=== PATIENT | male | born 1985 | race Caucasian/White ===

== ENCOUNTER 2021-06-19 12:26 | Outpatient (REF) | payer BC, SELFPAY ==
--- NOTE | ~2021-06-19 | XR_ITS ---
EXAMINATION: XR SHOULDER, RIGHT CLINICAL INFORMATION: Right shoulder pain. COMPARISON: None TECHNIQUE: AP external rotation, Grashey, scapular Y, and axillary views of the right shoulder. FINDINGS: The bones and soft tissues are normal. No fracture. Glenohumeral and acromioclavicular alignment is anatomic with normal joint space. No abnormal soft tissue calcifications. XR/XR shoulder RT min 2V IMPRESSION: Unremarkable right shoulder.
--- NOTE | ~2021-06-19 | XR_ITS ---
EXAMINATION: XR FOOT, LEFT CLINICAL INFORMATION: Left foot pain. COMPARISON: None TECHNIQUE: AP, lateral, and oblique views of the left foot. FINDINGS: The bones and soft tissues are normal. No fracture. Alignment is anatomic. Joint spaces are maintained. XR/XR foot LT min 3V IMPRESSION: Unremarkable left foot.
[2021-06-19 13:53] LABS: MANUAL DIFF FLAG NO
[2021-06-19 13:59] LABS: Basophils Absolute Auto 0.1 X10*3/uL (0.0-0.2); Basophils Percent Auto 0.9 % (0-2); Eosinophils Absolute Auto 0.1 X10*3/uL (0.0-0.4); Eosinophils Percent Auto 1.3 % (0-4); Hemoglobin 15.6 g/dl (14.0-18.0); Imm Gran Abs Auto 0.09 X10*3/uL (0.00-0.03); Imm Gran Pct Auto 0.9 % (0.0-0.4); Lymphocytes Absolute Auto 1.9 X10*3/uL (1.2-4.9); Lymphocytes Percent Auto 19.6 % (20-40); Mean Corpuscular HGB Conc 34.7 g/dl (31.0-36.0); Mean Corpuscular Hemoglobin 29.7 pg (27.0-33.0); Mean Corpuscular Volume 85.7 fL (80-98); Mean Platelet Volume 10.3 fL (9.4-12.4); Monocytes Absolute Auto 0.8 X10*3/uL (0.1-1.2); Monocytes Percent Auto 8.3 % (2-11); Neutrophils Absolute Auto 6.6 X10*3/uL (2.0-8.3); Platelet Count 356 X10*3/uL (160-400); Red Blood Count 5.25 X10*6/uL (4.60-5.80); Red Cell Distribution Width 12.6 % (11.0-16.0); White Blood Count 9.5 X10*3/uL (4.8-10.8)
[2021-06-19 14:00] LABS: Appearance Urine CLEAR; Color Urine YELLOW; Glucose Urine UA NEG (NEG); Leukocyte Esterase Urine NEG (NEG); Nitrite Urine NEG (NEG); Urine Blood NEG (NEG); Urine Ketones NEG (NEG); Urine Protein NEG (NEG-TRACE)
[2021-06-19 14:11] LABS: Alanine Aminotransferase 48 U/L (0-40); Albumin Level 5.1 g/dL (3.5-5.0); Alkaline Phosphatase 72 U/L (39-117); Anion Gap 17 (12-20); Aspartate Amino Transferase 35 U/L (5-37); Bilirubin Total 0.5 mg/dL (0.0-1.0); Blood Urea Nitrogen 8 mg/dL (9-16); Carbon Dioxide 23 mmol/L (22-29); Chloride 102 mmol/L (96-108); Estimated Glomerular Filt Rate > 60; Glucose Fasting 105 mg/dL (60-99); Iron 100 mcg/dL (45-160); Percent Iron Saturation 24 % (15-50); Potassium 4.3 mmol/L (3.3-5.1); Sodium 138 mmol/L (135-145); Total Iron Binding Capacity 411 mcg/dL (228-428); Total Protein 8.2 g/dL (6.5-8.0); Unsaturated Iron Binding 311 ug/dL
[2021-06-19 14:41] LABS: Ferritin 284 ng/mL (20-250); TSH reflex Free T4 1.23 uIU/mL (0.32-4.0)
[2021-06-19 14:42] LABS: Vitamin B12 608 pg/mL (200-900)
[2021-06-20 08:37] LABS: Lyme Abs Screen <0.90 index
[2021-06-20 11:56] LABS: Anti Nuclear Antibody Screen NEGATIVE (NEGATIVE)
== END 2021-06-19 12:27 | disposition home or self-care (01) ==
LOC: HO.HMGCX 12:26
PROVIDERS: PCP Nurse Practitioner Family; Visit Provider Nurse Practitioner Family
DX: R53.83 Other fatigue (principal); M25.511 Pain in right shoulder; M79.672 Pain in left foot
CPT/HCPCS: 36415; 73030; 73630; 80053; 81003; 82607; 82728; 83540; 84443; 85025; 86038; 86039; 86617; 86618

== ENCOUNTER → 2021-07-25 08:36 | Outpatient (BNVA) | payer BC, SELFPAY | PROVIDERS: PCP Nurse Practitioner Family; Referring Provider Nurse Practitioner Family; Visit Provider Psychiatry & Neurology Neurology ==

== ENCOUNTER 2021-07-26 08:52 | Outpatient (REF) | payer BC, SELFPAY ==
--- NOTE | ~2021-07-26 | US_ITS ---
EXAMINATION: US ABDOMEN COMPLETE CLINICAL INFORMATION: Abnormal levels of serum enzymes. COMPARISON: None TECHNIQUE: Real-time imaging of the abdominal viscera. FINDINGS: PANCREAS: Normal. ABDOMINAL AORTA: The proximal, mid, and distal segments are normal in caliber. INFERIOR VENA CAVA: Visualized portions are normal. LIVER: The liver is normal in size. The liver contour is normal. There is increased liver echogenicity. No focal hepatic lesion. There is no intrahepatic biliary duct dilatation seen. GALLBLADDER: Gallbladder wall thickness measures 0.19 cm. The gallbladder is physiologically distended without evidence of stones, sludge, polyps, wall thickening or pericholecystic fluid. COMMON BILE DUCT: Normal in caliber measuring 0.4 cm in diameter. RIGHT KIDNEY: There are multiple echogenic foci non-parenchymal and non-shadowing. Question vascular calcification. No hydronephrosis. No renal calculi or focal parenchymal lesions. The kidney measures 11.3 cm in maximum dimension. LEFT KIDNEY: There are multiple echogenic foci, non-parenchymal and non-shadowing. Likely vascular calcification. No hydronephrosis. No renal calculi or focal parenchymal lesions. The kidney measures 13.4 cm in maximum dimension. SPLEEN: Normal. The spleen measures 9.3 cm in maximum dimension. FREE FLUID: None. US/US abdomen complete IMPRESSION: 1. Mild hepatic steatosis without focal lesion. 2. Scattered small multiple echogenic foci in both kidneys likely small vascular calcifications. No caliectasis or hydronephrosis seen. 3. The rest of the abdomen ultrasound is unremarkable.
[2021-07-27 10:08] LABS: HBS Num1 60.64 mIU/mL (0-7.99); HBc Num1 0.06 S/CO (0.00-0.79); Hepatitis B Core Antibody Nonreactive (Nonreactive); ~HepC Num1 0.09 S/CO (0.00-0.79); ~Hepatitis B Surface Antibody REACTIVE (Nonreactive); ~Hepatitis C Antibody Nonreactive (Nonreactive)
[2021-07-27 10:31] LABS: HBsAGNum1 0.21 S/CO (0.00-0.99); Hepatitis B Surface Antigen Negative (Negative)
[2021-07-27 12:27] LABS: Hepatitis A Antibody IgM 0.15 Index (0-0.79); ~Hepatitis A Antibody IgM Nonreactive (Nonreactive)
== END 2021-07-26 08:53 | disposition home or self-care (01) ==
LOC: HO.HMGCX 08:52
PROVIDERS: PCP Nurse Practitioner Family; Visit Provider Nurse Practitioner Family
DX: R74.8 Abnormal levels of other serum enzymes (principal)
CPT/HCPCS: 36415; 76700; 86704; 86706; 86709; 86803; 87340

== ENCOUNTER 2022-03-26 10:31 | Day surgery (SDC) | payer BC, SELFPAY ==
[2022-03-20 10:08] VITALS: BMI 27.6
--- NOTE | 2022-03-23 10:48 | P.CONAN_ITS ---
Documented by User: Flores Segura NP 03/23/22 10:48 HPI - Anesthesia Eval Consult details Narrative: 36yo M for Upper Endoscopy PMFSH Active Problems Active Problems: All Active Problems (Updated 03/20/22 @ 10:04 by Jacqueline Gasca RN) Right shoulder pain (Acute) Anxiety (Acute) Fatigue (Acute) Left foot pain (Acute) Elevated liver enzymes (Acute) Snoring (Acute) Excessive daytime sleepiness (Acute) Sebaceous cyst of right axilla (Acute) Skin lesion (Acute) Past Medical History Medical History GERD (gastroesophageal reflux disease) Family History Family History Father Hepatitis C Mother No problems noted. Sister No problems noted. Surgical History Surgical History H/O colonoscopy History of esophagogastroduodenoscopy Hx of wisdom tooth extraction Social History Social History Alcohol intake: current Alcohol intake frequency: 3 or more drinks per day Alcohol type: beer Patient Tobacco Use Status: Former Tobacco user Quit Date: 2016 Years Smoked: 10 +/- Use of substances other than those prescribed or required for medical reasons: Yes Substance Use Frequency: Daily Are you DNR?: No Advance Directives: No Advance Directives Information Provided: Yes Meds Allergies Allergy/AdvReac Type Severity Reaction Status Date / Time No Known Allergies Allergy Verified 09/26/21 10:00 [No Known Allergies*] Home Medications Medication Instructions Recorded Confirmed Last Taken Type flu vac qv 2019(18yr up)rc(PF) 180 ml IM 08/04/20 09/26/21 Unknown History mcg(45 mcgx4)/0.5 mL IM syringe omeprazole 40 mg capsule,delayed 40 mg PO BID 07/25/21 03/20/22 Unknown History release esomeprazole magnesium 40 mg 40 mg PO DAILY 03/20/22 03/20/22 Unknown History capsule,delayed release (Nexium) meclizine 25 mg tablet 25 mg PO DAILY PRN Vertigo 03/20/22 03/20/22 Unknown History ondansetron HCl 4 mg tablet 4 mg PO Q6H PRN Nausea And Vomiting 03/20/22 03/20/22 Unknown History Exam Exam Date and Time: March 23, 2022 1048 Height,Weight and Vital Signs: Height 6 ft Weight 92.533 kg Assessment and Plan Assessment Anesthesia Assessment: Chart Reviewed Documented by User: Svitlana Roth MD 03/26/22 11:36 [facility] Past Medical History Medical History GERD (gastroesophageal reflux disease) Family History Family History Father Hepatitis C Mother No problems noted. Sister No problems noted. Surgical History Surgical History H/O colonoscopy History of esophagogastroduodenoscopy Hx of wisdom tooth extraction History of Problems with Anesthesia: No Social History Social History Alcohol intake: current Alcohol intake frequency: 3 or more drinks per day Alcohol type: beer Patient Tobacco Use Status: Former Tobacco user Quit Date: 2016 Years Smoked: 10 +/- Use of substances other than those prescribed or required for medical reasons: Yes Substance Use Frequency: Daily Are you DNR?: No Advance Directives: No Advance Directives Information Provided: Yes Meds Allergies Allergy/AdvReac Type Severity Reaction Status Date / Time No Known Allergies Allergy Verified 09/26/21 10:00 [No Known Allergies*] Home Medications Medication Instructions Recorded Confirmed Last Taken Type flu vac qv 2019(18yr up)rc(PF) 180 ml IM 08/04/20 09/26/21 Unknown History mcg(45 mcgx4)/0.5 mL IM syringe omeprazole 40 mg capsule,delayed 40 mg PO BID 07/25/21 03/20/22 Unknown History release esomeprazole magnesium 40 mg 40 mg PO DAILY 03/20/22 03/20/22 Unknown History capsule,delayed release (Nexium) meclizine 25 mg tablet 25 mg PO DAILY PRN Vertigo 03/20/22 03/20/22 Unknown History ondansetron HCl 4 mg tablet 4 mg PO Q6H PRN Nausea And Vomiting 03/20/22 03/20/22 Unknown History Exam Airway Mallampati Class: III TM Dist: >3cm Neck ROM: Full Loose/Missing/Broken Teeth: No Heart: RRR Lungs: CTA Assessment and Plan Assessment Anesthesia Assessment: Anesthesia Plan Discussed Final Anesthetic Review History of Problems with Anesthesia: No NPO: Yes ASA Class: II Final Preanesthetic Review: Meds/Allgs Chart Reviewed, Consent Obtained/Reviewed and Anes Risks/Benef Reviewed Patient Risk: Low Procedure Risk: Intermediate Anesthetic Plan Anesthetic Plan: MAC: Disposition: Standard PACU
[2022-03-26 10:48] VITALS: BP 145/97; PULSE 85; RESP 16; TEMP 36.3; O2SAT 96
[2022-03-26] MEDS: Lactated Ringers 1,000 ML 100 ML IVCONT (11:10)
[2022-03-26 12:12] VITALS: BP 122/69; PULSE 88; RESP 20; TEMP 36.7; O2SAT 99
--- NOTE | 2022-03-26 12:20 | PM.OP ---
Brief Operative Note Date of Service: 03/26/22 Pre-op diagnosis: GERD, Hx of duodenal adenoma Post-op diagnosis: other (Hiatal hernia, Gastric polyps, R/O Celiac disease) Procedure: EGD with biopsies Surgeon: Jugn Duncan Anesthesia: MAC Was an Administrative Intern used for this Procedure?: No Estimated blood loss (mL): 2.0 Pathology: other (A. Descending duodenum B. EG Junction at 39cm C. Gastric polyps) Condition: stable Disposition: PACU
[2022-03-26 12:27] VITALS: BP 123/75; PULSE 76; RESP 18; O2SAT 95
[2022-03-26 12:42] VITALS: BP 141/91; PULSE 79; RESP 18; O2SAT 97
[2022-03-26 12:57] VITALS: BP 146/97; PULSE 72; RESP 19; TEMP 36.8; O2SAT 97
[2022-03-26 13:13] VITALS: BP 131/89; PULSE 74; RESP 20; TEMP 36.8; O2SAT 98
--- NOTE | 2022-03-27 11:42 | OP_ITS ---
SURGEON: Jung Duncan MD INDICATIONS: The patient presents for followup of personal history of a duodenal adenoma, intermittent diarrhea, and gastroesophageal reflux. Full consent has been obtained from him for this, including risks of bleeding and perforation. PREOPERATIVE DIAGNOSIS: POSTOPERATIVE DIAGNOSIS: Gastroesophageal reflux, history of duodenal adenoma, and intermittent diarrhea, rule out celiac disease, gastric polyps, hiatal hernia, rule out Law's esophagus. PROCEDURE PERFORMED: Esophagogastroduodenoscopy with biopsies. ESTIMATED BLOOD LOSS: COMPLICATIONS: ANESTHESIA: Monitored anesthesia care. ASSISTANTS: SPECIMENS: PREOPERATIVE DIAGNOSES: Gastroesophageal reflux, history of duodenal adenoma, and intermittent diarrhea. DESCRIPTION OF PROCEDURE: The patient was placed in the left lateral decubitus position. The Olympus video gastroscope was passed into the posterior oropharynx and upper esophagus under direct vision. The scope was passed slowly to the distal esophagus. The gastroesophageal junction appeared at 39 cm. This area appeared slightly irregular consistent with reflux but no evidence of esophagitis nor any definitive evidence of Law's esophagus. The scope was advanced to the pylorus and the duodenum was cannulated to the descending portion. The duodenum including the bulb was carefully inspected and appeared normal without any sign of polyps nor ulceration. The duodenal bulb did not show any sign of residual polyp tissue. I did obtain biopsies in the 2nd and 3rd portions of duodenum. The scope was withdrawn back to the stomach. The gastric antrum and body appeared normal with good peristalsis. The scope was retroflexed visualizing the proximal stomach carefully, which appeared normal, without any sign of mass or ulceration. There were multiple hyperplastic gastric polyps noted. Several of these were biopsied. The scope was straightened and withdrawn back to the esophagus. Biopsies were obtained at the EG junction at 39 cm. Proximal to that, the esophageal mucosa appeared normal. The scope was withdrawn from the patient. He tolerated the procedure well and was returned to the recovery area in stable condition. IMPRESSION: 1. Rule out celiac disease. 2. Gastric polyps. 3. Hiatal hernia, rule out Law esophagus. PLAN: The results of the biopsies will be checked. If there is evidence of Law's esophagus, I would recommend a repeat upper endoscopy in 3 years. If there is no Law's esophagus, I would still recommend another upper endoscopy in 2 or 3 years given the previous history of the duodenal adenoma. He was advised not to use any aspirin or NSAIDs for at least 1 week. He was advised to continue his omeprazole, which he is currently using at 20 mg b.i.d. 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 He was advised to continue to use Tums and to not eat for several hours before bedtime. If things are stable I will plan to see him in 2023 for another colonoscopy as well. This has been discussed with his . MD DI Cuenca/PRESLEY / [id number] MTDD
== END 2022-03-26 13:42 | disposition home or self-care (01) ==
PROVIDERS: PCP Nurse Practitioner Family; Visit Provider Internal Medicine
PROC: 0DJ08ZZ Inspection of Upper Intestinal Tract, Via Natural or Artificial Opening Endoscopic (ICD-10-PCS; CPT 43235; principal; 2022-03-26 11:30)
DX: K21.9 Gastro-esophageal reflux disease without esophagitis (principal); Z86.018 Personal history of other benign neoplasm; K31.7 Polyp of stomach and duodenum; K44.9 Diaphragmatic hernia without obstruction or gangrene; K58.0 Irritable bowel syndrome with diarrhea; Z79.899 Other long term (current) drug therapy; Z87.891 Personal history of nicotine dependence
CPT/HCPCS: 43239; 88305; 88342; J2250

== ENCOUNTER 2023-07-28 09:52 | Emergency (ER) | payer BC, SELFPAY ==
--- NOTE | ~2023-07-28 | CT_ITS ---
EXAMINATION: CT ABDOMEN AND PELVIS WITH CONTRAST CLINICAL INFORMATION: Epigastric pain. History of pancreatitis. COMPARISON: Ultrasound abdomen 07/28/2021 TECHNIQUE: Multidetector volumetric images were obtained from the superior aspect of the liver through the pubic symphysis following administration 85 mL of Omnipaque 350 intravenous contrast. Sagittal and coronal reformatted images were obtained on the technologist's workstation. Oral contrast: No This CT examination was performed using dose optimization techniques as appropriate, variously including the following: *Automated exposure control *Adjustment of mA and/or kV according to patient size (this includes techniques or standardized protocols for targeted exams where dose is matched to indication/reason for exam; i.e. extremities or head) *Use of iterative reconstruction technique DLP: 558 mGy-cm FINDINGS: LUNG BASES: The visualized lung bases are unremarkable. LIVER, GALLBLADDER, AND BILIARY TREE: The liver is normal in size, shape, and attenuation. No focal hepatic lesion or biliary ductal dilatation is present. The gallbladder is unremarkable with no evidence of radiopaque gallstones, gallbladder wall thickening, or obvious pericholecystic inflammatory changes. PANCREAS: Unremarkable. SPLEEN: Unremarkable.. Small accessory splenule. ADRENAL GLANDS: Unremarkable. KIDNEYS AND URETERS: The kidneys are normal in size, shape, and attenuation. No hydronephrosis, hydroureter, or calculi seen. No perinephric stranding. BLADDER: Unremarkable. GASTROINTESTINAL TRACT: The small and large bowel are unremarkable. The appendix is unremarkable. ABDOMINAL WALL: Small umbilical hernia containing fat is noted. LYMPH NODES: Normal. VASCULAR: Unremarkable. PELVIC VISCERA: Unremarkable. OSSEOUS STRUCTURES: Unremarkable. CT/CT abdomen pelvis w IV con IMPRESSION: No acute intra-abdominal process seen. Fleischner guidelines were followed.
[2023-07-28 09:54] VITALS: BP 167/115; PULSE 126; RESP 20; TEMP 37; O2SAT 96; BMI 26.9
--- NOTE | 2023-07-28 10:17 | ED_ITS ---
HPI - Abdominal Pain General Chief Complaint: Abdominal Pain Stated Complaint: Pancreatitis (?) symptoms Time Seen by Provider: 07/28/23 10:05 Source: patient and old records reviewed Mode of arrival: ambulatory Limitations: no limitations History of Present Illness HPI narrative: 37 yo male with PMH of anxiety, 3-10 beers a day, GERD taking his PPI here with c/o one week of n/v and upper abdominal pain. He is drinking heavily every day and not feeling well. He denies hx of seizures. He is shaky right now. MD elicited complaint: abdominal pain Pertinent past history: gastritis Onset (ago): week(s) (1) Pain Consistency: constant Location: epigastric Severity: moderate Quality: aching Radiation: back Migration to: no migration Exacerbating factors: eating and movement Relieving factors: nothing Context: history of similar episodes Associated symptoms: nausea and vomiting Related Data Home Medications Medication Instructions Recorded Confirmed flu vac qv 2019(18yr up)rc(PF) 180 ml IM 08/04/20 09/26/22 mcg(45 mcgx4)/0.5 mL IM syringe omeprazole 40 mg capsule,delayed 40 mg PO BID 07/25/21 09/26/22 release meclizine 25 mg tablet 25 mg PO DAILY PRN Vertigo 03/20/22 09/26/22 ondansetron HCl 4 mg tablet 4 mg PO Q6H PRN Nausea And Vomiting 03/20/22 09/26/22 Previous Rx's Medication Instructions Recorded lorazepam 0.5 mg tablet 0.5 mg PO DAILY PRN anxiety 30 05/02/21 days #30 tabs lorazepam 1 mg tablet (Ativan) 1 mg PO TID PRN alcohol withdrawal 07/28/23 #9 tabs ondansetron 4 mg disintegrating 4 mg PO Q8H PRN nausea and 07/28/23 tablet vomiting #20 tabs sucralfate 100 mg/mL oral 1 g (10 mL) PO BID 7 days #140 mL 07/28/23 suspension (Carafate) Allergies Allergy/AdvReac Type Severity Reaction Status Date / Time No Known Allergies Allergy Verified 07/28/23 09:59 [No Known Allergies*] Review of Systems Review of Systems Constitutional : No Weight loss, No Fever, No Chills ENT/Mouth : No sore throat, No Rhinorrhea Eyes: No Swelling, No Redness Cardiovascular : No Chest Pain, No SOB, NoEdema Respiratory : No Cough, No Sputum, No Wheezing Gastrointestinal : Positive Nausea, Positive Vomiting, no Diarrhea, positive abdominal Pain, No Hematochezia, No Melena Genitourinary : No Dysuria, No Urinary Frequency, No Hematuria, No Urgency Musculoskeletal : No joint pain, No Myalgias, No Joint Swelling Skin : No Skin Lesions, No rash Neuro : No Weakness, No Numbness, No Dizziness, No Headache Psych : No Anxiety/Panic, No Depression Heme/Lymph: No Bruising, No Lymphadenopathy Endocrine : No Polyuria, No Polydipsia All other systems reviewed and are negative. [facility] Past Medical History Attestation statement: The following information was validated with the patient. Source: old records reviewed Medical History GERD (gastroesophageal reflux disease) Surgical History Hx of wisdom tooth extraction H/O colonoscopy History of esophagogastroduodenoscopy Family History Family History Father Hepatitis C Mother No problems noted. Sister No problems noted. Social History Housing: House Alcohol intake: current Alcohol intake frequency: 3 or more drinks per day Alcohol type: beer Patient Tobacco Use Status: Former Tobacco user Quit Date: 2016 Smoked: 10 +/- Smoked in Last 30 Days: No e-Cigarette/Vaping Use: Never Used Second Hand Smoke Exposure: No Advance Directives: No Advance Directives Information Provided: No service: No Current occupational status: employed Current occupation: [employer] Current occupational exposures/hazards: No Cognitive needs: No Hearing needs: No Vision needs: No Physical Exam ED Vital Signs: Vital Signs - 24 hr 07/28/23 09:54 07/28/23 12:04 Temperature 98.6 F 98.4 F Pulse Rate 126 H 98 Respiratory Rate 20 16 Blood Pressure 167/115 H 142/94 H Pulse Oximetry 96 98 Oxygen Delivery Method Room Air Room Air BMI result Body Mass Index 26.9 Appearance: Alert. Oriented X3. No acute distress. Eyes: Pupils equal, round and reactive to light. ENT: Pharynx normal. Neck: Normal inspection. Neck supple. CVS: Normal heart rate and rhythm. Pulses normal. Respiratory: No respiratory distress. Breath sounds normal. Abdomen: Soft and moderate epigastric ttp no rebound or guarding Skin: Skin warm and dry. Normal skin color. Normal skin turgor. Extremities: No lower extremity edema. No calf ttp Neuro: Oriented X 3. No motor deficit. No sensory deficit. slight UE tremors and tongue fasciculations Medical Decision Making Medical Decision Making [facility] Narrative: 37 yo male with PMH of anxiety, 3-10 beers a day, GERD taking his PPI here with c/o upper abdominal pain and n/v with tremors and tongue fasciculations. He is showing some signs of ETOH withdrawal. Pain could be gastritis vs PUD vs pancreatitis. IV morphine, ativan and fluids ordered. CT scan for pancreatitis ordered. Differential Diagnosis Differential Diagnoses: The differential diagnosis associated with the presentation includes ETOH withdrawal, gastritis, pancreatitis Admission/Observation Consideration of admission/observation: Escalation of care including admission/observation considered tolerating PO feels much better stable for DC Lab Data [facility] Lab Attestation statement: I reviewed the patient's lab results. 07/28/23 10:23 07/28/23 10:23 Labs: Lab Results 07/28/23 Range/Units 10:23 WBC 8.5 (4.8-10.8) X10*3/uL RBC 5.36 (4.60-5.80) X10*6/uL Hgb 16.4 (14.0-18.0) g/dl Hct 46.5 (42.0-52.0) % MCV 86.8 (80.0-98.0) fL MCH 30.6 (27.0-33.0) pg MCHC 35.3 (31.0-36.0) g/dl RDW 12.3 (11.0-16.0) % Plt Count 331 (160-400) X10*3/uL MPV 9.7 (9.4-12.4) fL Immature Gran % (Auto) 0.4 (0.0-0.4) % Neut % (Auto) 73.3 H (45-73) % Lymph % (Auto) 16.7 L (20-40) % [place] % (Auto) 8.0 (2-11) % Eos % (Auto) 0.5 (0-4) % Baso % (Auto) 1.1 (0-2) % Lymph # (Auto) 1.4 (1.2-4.9) X10*3/uL [place] # (Auto) 0.7 (0.1-1.2) X10*3/uL Eos # (Auto) 0.0 (0.0-0.4) X10*3/uL Baso # (Auto) 0.1 (0.0-0.2) X10*3/uL Abs Immat Gran (auto) 0.03 (0.00-0.03) X10*3/uL Absolute Neuts (auto) 6.3 (2.0-8.3) x10*3/uL Absolute Nucleated RBC 0.000 (0.0-0.012) X10*3/uL Nucleated RBC % (auto) 0.0 (0.0-0.2) /100WBC Sodium 139 (135-145) mmol/L Potassium 4.0 (3.3-5.1) mmol/L Chloride 101 (96-108) mmol/L Carbon Dioxide 25 (22-29) mmol/L Anion Gap 17 (12-20) BUN 9 (9-16) mg/dL Creatinine 1.09 (0.5-1.4) mg/dL Estim Creat Clear Calc 102.8 Estimated GFR > 60 Random Glucose 119 H (60-115) mg/dL Calcium 9.5 (8.4-10.2) mg/dL Total Bilirubin 0.9 (0.0-1.0) mg/dL Direct Bilirubin 0.4 (0.0-0.5) mg/dL AST 35 (5-37) U/L ALT 41 H (0-40) U/L Alkaline Phosphatase 62 (39-117) U/L Lactate Dehydrogenase 166 (118-273) U/L Total Protein 8.1 H (6.5-8.0) g/dL Albumin 4.8 (3.5-5.0) g/dL Lipase 22 (8-78) U/L Ethyl Alcohol < 10 mg/dL Independent Interpretation I performed an independent interpretation of an: CT Scan (no acute findings. ) Radiology Impression Discussion of test interpretation with radiology: I have reviewed the radiologist's reading. External Record Review External record reviewed: Office record Prescription Management I considered prescription management with: Other Medications Administered Discontinued Medications Generic Name Dose Route Start Last Admin Trade Name Freq PRN Reason Stop Dose Admin Lactated Ringer's 1,000 mls @ 999 mls/hr 07/28/23 10:15 07/28/23 12:06 Lr IV 07/28/23 11:15 999 mls/hr .Q1H1M JOANNA Administration Thiamine HCl 200 mg/ Sodium 102 mls @ 204 mls/hr 07/28/23 10:05 07/28/23 11:45 Chloride IV 07/28/23 10:34 Infused ONCE ONE Infusion Iohexol 100 ml 07/28/23 11:42 07/28/23 11:42 Iohexol 350 Mg/Ml 100 Ml Infus..Btl IV 07/28/23 11:43 85 ml ONCE ONE Administration Lorazepam 1 mg 07/28/23 10:05 07/28/23 10:40 Lorazepam 2 Mg/Ml Vial IVPUSH 07/28/23 10:06 1 mg STAT STA Administration Morphine Sulfate 4 mg 07/28/23 10:05 07/28/23 10:40 Morphine Sulfate 4 Mg/Ml Cartridge IVPUSH 07/28/23 10:06 4 mg ONCE ONE Administration Protocol Ondansetron HCl 4 mg 07/28/23 10:05 07/28/23 10:40 Ondansetron Hcl 4 Mg/2 Ml Vial IVPUSH 07/28/23 10:06 4 mg ONCE ONE Administration Discharge Plan Discharge Clinical Impression: Acute alcoholic gastritis Qualifiers: Gastritis bleeding: without bleeding Qualified Code(s): K29.20 - Alcoholic gastritis without bleeding Patient Disposition: Home, Self-Care Instructions: Gastritis (ED), Alcohol Use Disorder (ED) Additional Instructions: labs and CT scan reassuring, return for worsening symptoms, fevers, vomiting or any other concerns. TAKE 40MG OF OMEPRAZOLE TWICE A DAY FOR THE NEXT WEEK, DECREASE YOUR ALCOHOL INTAKE FOLLOW UP WITH YOUR GI DOCTOR Prescriptions: New ondansetron 4 mg tablet,disintegrating 4 mg PO Q8H PRN (Reason: nausea and vomiting) Qty: 20 0RF sucralfate [Carafate] 100 mg/mL suspension 1 g PO BID 7 Days Qty: 140 0RF lorazepam [Ativan] 1 mg tablet 1 mg PO TID PRN (Reason: alcohol withdrawal) Qty: 9 0RF No Action lorazepam 0.5 mg tablet 0.5 mg PO DAILY PRN (Reason: anxiety) 30 Days Qty: 30 0RF ondansetron HCl [Zofran] 4 mg Tablet 4 mg PO Q6H PRN (Reason: Nausea And Vomiting) meclizine 25 mg Tablet 25 mg PO DAILY PRN (Reason: Vertigo) Flublok Quad [id number] (PF) 180 mcg (45 mcg x 4)/0.5 mL syringe IM omeprazole 40 mg capsule,delayed release(DR/EC) 40 mg PO BID
[2023-07-28 10:30] LABS: MANUAL DIFF FLAG NO
[2023-07-28 10:31] LABS: Basophils Absolute Auto 0.1 X10*3/uL (0.0-0.2); Basophils Percent Auto 1.1 % (0-2); Eosinophils Percent Auto 0.5 % (0-4); Hematocrit 46.5 % (42.0-52.0); Hemoglobin 16.4 g/dl (14.0-18.0); Imm Gran Abs Auto 0.03 X10*3/uL (0.00-0.03); Imm Gran Pct Auto 0.4 % (0.0-0.4); Lymphocytes Absolute Auto 1.4 X10*3/uL (1.2-4.9); Lymphocytes Percent Auto 16.7 % (20-40); Mean Corpuscular HGB Conc 35.3 g/dl (31.0-36.0); Mean Corpuscular Hemoglobin 30.6 pg (27.0-33.0); Mean Corpuscular Volume 86.8 fL (80.0-98.0); Mean Platelet Volume 9.7 fL (9.4-12.4); Monocytes Absolute Auto 0.7 X10*3/uL (0.1-1.2); Neutrophils Absolute Auto 6.3 x10*3/uL (2.0-8.3); Neutrophils Percent Auto 73.3 % (45-73); Platelet Count 331 X10*3/uL (160-400); Red Blood Count 5.36 X10*6/uL (4.60-5.80); Red Cell Distribution Width 12.3 % (11.0-16.0); White Blood Count 8.5 X10*3/uL (4.8-10.8)
[2023-07-28] MEDS: ondansetron HCL 4 MG/2 ML VIAL IVPUSH (10:40)
[2023-07-28] MEDS: Thiamine HCL 200 MG in 0.9 % Sodium Chloride 100 ML 204 MG IV (10:40)
[2023-07-28] MEDS: Morphine Sulfate 4 MG/ML CARTRIDGE IVPUSH (10:40)
[2023-07-28] MEDS: LORazepam 2 MG/ML VIAL 1 MG IVPUSH (10:40)
[2023-07-28 10:47] LABS: Alanine Aminotransferase 41 U/L (0-40); Albumin Level 4.8 g/dL (3.5-5.0); Alkaline Phosphatase 62 U/L (39-117); Anion Gap 17 (12-20); Aspartate Amino Transferase 35 U/L (5-37); Bilirubin Direct 0.4 mg/dL (0.0-0.5); Bilirubin Total 0.9 mg/dL (0.0-1.0); Blood Urea Nitrogen 9 mg/dL (9-16); Calcium 9.5 mg/dL (8.4-10.2); Carbon Dioxide 25 mmol/L (22-29); Chloride 101 mmol/L (96-108); Creatinine Clr Calc Pharmacy 102.8; Estimated Glomerular Filt Rate > 60; Glucose Random 119 mg/dL (60-115); Lactate Dehydrogenase 166 U/L (118-273); Lipase 22 U/L (8-78); Sodium 139 mmol/L (135-145); Total Protein 8.1 g/dL (6.5-8.0)
[2023-07-28 10:51] LABS: Ethanol < 10 mg/dL
--- NOTE | 2023-07-28 11:03 | PC.NURSE ---
alert and oriented, respirations even and unlabored., IV established medicated per the MAR. patient resting quietly in room watching mauro carmona
[2023-07-28] MEDS: iohexoL 350 MG/ML 100 ML INFUS..BTL IV (11:42)
[2023-07-28 12:04] VITALS: BP 142/94; PULSE 98; RESP 16; TEMP 36.9; O2SAT 98
--- NOTE | 2023-07-28 12:04 | PC.NURSE ---
patient awaiting results of CT scan, resting quietly in room with no complaints. fluids infusing, call pitts within reach.
[2023-07-28] MEDS: Lactated Ringers 1,000 ML 999 ML IV (12:06)
== END 2023-07-28 13:53 | disposition home or self-care (01) ==
PROVIDERS: Emergency Provider Emergency Medicine; PCP Nurse Practitioner Family
DX: K29.20 Alcoholic gastritis without bleeding (principal); R10.13 Epigastric pain; R11.2 Nausea with vomiting, unspecified; Z79.899 Other long term (current) drug therapy
CPT/HCPCS: 36415; 74177; 80053; 80307; 82248; 83615; 83690; 85025; 96365; 96375; 99284; J2060; J2270; J2405; J3411; J7120; Q9967

== ENCOUNTER 2023-10-02 10:29 | Outpatient (AMB) | payer BC, SELFPAY ==
--- NOTE | 2023-10-02 10:38 | A.OFFPC_ITS ---
Vital Signs 10/02/23 10:40 Height 6 ft Weight 213 lb 4 oz BMI 28.9 BP 130/82 Blood Pressure Location Lt brachial Position Sitting Pulse 79 Pulse Source Pulse Oximeter Pulse Oximetry (%) 100 Oxygen Delivery Method Room Air Intake Visit Reasons: PE Intake Note: Pt is here for his Annual PE Allergies No Known Allergies [No Known Allergies*] Allergy (Verified 10/02/23 10:43) Medication List - Last Reconciled 10/02/23 by PANKAJ Thacker flu vac qv 2019(18yr up)rc(PF) mL IM lorazepam (Ativan) 1 mg PO TID PRN meclizine 25 mg PO DAILY PRN omeprazole 40 mg PO BID ondansetron 4 mg PO Q8H PRN Tobacco use date assessed: 10/02/23 Dental Screening Dental Screen Date: 10/02/23 Did you have a dental visit in the last 12 months?: Yes Did you have a dental problem in the last 6 months where you did not have access to dental care?: No Was dental information given to patient?: Patient has dentist HPI PE HPI Details Pt is here for a PE. Will order labs. Pt has a hx of asthma. He reports intermittent wheezing. Will send prn inhaler. Pt does not want a daily inhaler. Pt does vape and is working on quitting. [facility]LY [facility] Medical History GERD (gastroesophageal reflux disease) Surgical History Hx of wisdom tooth extraction H/O colonoscopy History of esophagogastroduodenoscopy Family History Father Hepatitis C Mother No problems noted. Sister No problems noted. Social History Housing: House Alcohol intake: current Alcohol intake frequency: 3 or more drinks per day Alcohol type: beer Patient Tobacco Use Status: Former Tobacco user Quit Date: 2016 Years Smoked: 10 +/- e-Cigarette/Vaping Use: Never Used Second Hand Smoke Exposure: No service: No Current occupational status: employed Current occupation: [employer] Current occupational exposures/hazards: No Cognitive needs: No Hearing needs: No Vision needs: No Questionnaire PHQ-9 Over the last 2 weeks, how often have you been bothered by any of the following problems? 1. Little interest or pleasure in doing things: not at all 2. Feeling down, depressed, or hopeless: not at all 3. Trouble falling or staying asleep, or sleeping too much: not at all 4. Feeling tired or having little energy: not at all 5. Poor appetite or overeating: not at all 6. Feeling bad about yourself - or that you are a failure or have let yourself or your family down: not at all 7. Trouble concentrating on things, such as reading the newspaper or watching television: not at all 8. Moving or speaking so slowly that other people could have noticed. Or the opposite - being so fidgety or restless that you have been moving around a lot more than usual: not at all 9. Thoughts that you would be better off or of hurting yourself in some way: not at all Total score: 0 Source: Developed by Drs. Jung Pena, Veronica Conklin, Philipp Lynn and colleagues, with an educational jasper from [employer]. Thrive Questionnaire Date Thrive assessed: 10/02/23 I am a: Patient What is your living situation today?: I have a steady place to live Within the past 12 months, did the food you bought not last and you didn't have the money to get more?: Never true Within the past 12 months, did you worry whether your food would run out before you got money to buy more?: Never true Do you have trouble paying for medicines?: No Do you have trouble getting transportation to medical appointments?: No Do you have trouble paying your heating and electricity bill?: No Do you have trouble taking care of your child, family member or friend?: No Do you have trouble with day-to-day activities such as bathing, preparing meals, shopping, managing finances, etc.?: No Are you currently unemployed and looking for a job?: No Are you interested in more education?: No THRIVE Score: 0 AUDIT C Alcohol Use Questionnaire (AUDIT-C) 1. How often do you have a drink containing alcohol?: 2-3 times a week 2. How many drinks containing alcohol do you have on a typical day when you are drinking?: 3 or 4 3. How often do you have six or more drinks on one occasion?: Monthly Total Score: 6 Score Reviewed/Action Taken: Yes ISAEL-7 AMB Questionnaire ISAEL-7 Date ISAEL - 7 assessed: 10/02/23 Feeling nervous, anxious, or on edge: 0 = Not at all Not being able to stop or control worryin = Not at all Worrying too much about different things: 1 = Several days Trouble relaxin = Not at all Being so restless that it is hard to sit still: 0 = Not at all Becoming easily annoyed or irritable: 0 = Not at all Feeling afraid as if something awful might happen: 0 = Not at all Total ISAEL-7 score (0-4 normal; 5-9 mild; 10-14 moderate; 15-21 severe): 1 Source: Developed by Drs. Jung Pena, Veronica Conklin, Philipp Lynn and colleagues, with an educational jasper from [employer]. Review of Systems Const Denies chills and Denies fever(s) Eyes Denies blurry vision ENT Denies vertigo, Denies dizziness and Denies sore throat Card Denies chest pain at rest, Denies chest pain with activity, Denies diaphoresis, Denies dyspnea and Denies dyspnea on exertion Resp Denies cough, Denies dyspnea, Denies dyspnea on exertion and Denies wheezing GI Denies abdominal pain, Denies melena, Denies hematochezia, Denies constipation, Denies diarrhea and Denies loose stools Denies hematuria Musc Denies numbness and Denies tingling Skin/Breast Denies lesions Neuro Denies vertigo, Denies dizziness, Denies numbness and Denies tingling Psych Denies anxiety, Denies depression, Denies homicidal ideation, Denies suicidal ideation and Denies other (substance abuse) Aller/Immun Denies wheezing Physical exam (Primary Care) Vital Signs: Last Vital Signs Pulse 79 10/02/23 10:40 BP 130/82 10/02/23 10:40 Pulse Ox 100 10/02/23 10:40 Oxygen Delivery Method Room Air 10/02/23 10:40 BMI result Body Mass Index 28.9 Tobacco/Smoking Status: Tobacco use Status Tobacco use date assessed 10/02/23 10/02/23 10:47 Patient Tobacco Use Status Former Tobacco user 10/02/23 10:38 e-Cigarette/Vaping Use Never Used 10/02/23 10:38 Thrive Assessment: Date of Thrive Assessment Date Thrive assessed 09/26/22 10/02/23 10:38 Const General: cooperative Nutritional Appearance: well nourished Orientation/consciousness: patient oriented x3 HENMT Head: Yes normal to inspection, Yes normocephalic and Yes atraumatic Ears: TM's normal bilaterally Eyes General: appearance normal, both eyes and all related structures Alignment and Position: alignment normal and position normal Neck Neck: Yes normal visual inspection and Yes no lymphadenopathy Thyroid: Thyroid normal Resp Other: faint scattered expiratory wheezing Effort & Inspection: normal respiratory effort Auscultation: clear to auscultation bilaterally Cardio Rate: regular rate Rhythm: regular rhythm Heart sounds: S1 normal heart sound present, S2 normal heart sound present and no murmurs GI Palpation (GI): Soft to palpation and nontender Auscultation: normal bowel sounds Male General Exam: Yes normal external exam Penis: normal penis Scrotum: scrotum normal, testes descended bilaterally and no inguinal hernias Testes: no testicular mass Skin Rashes: no rashes Neuro General: patient oriented x3, moves all extremities, no focal motor deficits and deep tendon reflexes 2+ bilaterally Romberg Test: Negative Psych Appearance: grossly normal Mental Status: mental status grossly normal Speech and movement: Normal speech and movement present Affect: normal affect Attitude: cooperative Thought process: Normal thought process present Thought content: Normal thought content present Insight: Good insight present (Psych) Judgement: Good judgement present (Psych) Assessment and Plan Assessment & Plan (1) Asthma: Code(s): J45.909 - Unspecified asthma, uncomplicated Plan: Inhaler sent (2) Encounter for routine adult physical exam with abnormal findings: Code(s): Z00.01 - Encounter for general adult medical examination with abnormal findings Plan: Labs ordered Plan The patient agreed to the use of a medical imaging technologist for this encounter. Scribed for PANKAJ Phelps by maite Najera scribe, on 10/02/2023 at 10:50 EST. Orders: Orders Complete Blood Count Auto Diff Today Z00.00 - Encounter for general adult medical examination without abnormal findings TSH reflex Free T4 Today Z00.00 - Encounter for general adult medical examination without abnormal findings Comprehensive [place]. Panel Fast Today Z00.00 - Encounter for general adult medical examination without abnormal findings UA CC w/rflx Micro + Cult Today Z00.00 - Encounter for general adult medical examination without abnormal findings Lipid Panel Today Z00.00 - Encounter for general adult medical examination without abnormal findings Medications: New albuterol sulfate 90 mcg/actuation 1 puff inhalation QID PRN 8.5 grams 3RF shortness of breath or wheezing Discontinued lorazepam Discontinued Reason: Duplicate 0.5 mg PO DAILY 30 days PRN 30 tabs 0RF anxiety Coding Level of Care Code Est Pt Prev Care 18-39y(54544) Diagnoses Asthma J45.909 Encounter for routine adult physical exam with abnormal findings Z00.01
[2023-10-02 10:40] VITALS: BP 130/82; PULSE 79; O2SAT 100; BMI 28.9
== END 2023-10-02 11:53 | disposition home or self-care (01) ==
PROVIDERS: Visit Provider Nurse Practitioner Family
DX: Z00.00 Encounter for general adult medical examination without abnormal findings (principal); J45.909 Unspecified asthma, uncomplicated
CPT/HCPCS: 99395

== ENCOUNTER 2024-05-11 13:20 | Outpatient (REF) | payer BC, SELFPAY ==
--- NOTE | ~2024-05-11 | US_ITS ---
EXAMINATION: US SCROTUM CLINICAL INFORMATION: Infertility, oligospermia. COMPARISON: CT abdomen/pelvis 07/28/2023. Testicular ultrasound 06/10/2011. TECHNIQUE: A sonogram of the scrotum was performed assessing echols-scale appearance and color Doppler flow. Spectral Doppler analysis of the arterial and venous flow were performed in the testes bilaterally. FINDINGS: RIGHT: Right testicle measures 3.7 x 1.9 x 2.7 cm, volume 9.7 mL. No focal testicular parenchymal lesions are visualized. Spectral Doppler analysis of the arterial and venous flow is normal in the right testis. Right epididymal head is normal in size. Small varicocele. No hydrocele. Right epididymal Doppler flow is normal. LEFT: Left testicle measures 3.7 x 1.8 x 2.6 cm, volume 9 mL. A 0.3 cm hypoechoic intraparenchymal lesion is not significantly changed compared to 06/10/2011. Spectral Doppler analysis of the arterial and venous flow is normal in the left testis. Left epididymal head is normal in size. Small varicocele. No hydrocele. Left epididymal Doppler flow is normal. US/US scrotum IMPRESSION: 1. Small bilateral varicoceles. 2. A 0.3 cm hypoechoic lesion in the left testicle is not significantly changed compared to 06/10/2011. Electronically signed by: Michelle Sanchez MD 05/11/2024 02:38 PM EDT
== END 2024-05-11 13:21 | disposition home or self-care (01) ==
LOC: HO.US 13:20
PROVIDERS: PCP Nurse Practitioner Family; Visit Provider Urology
DX: N44.2 Benign cyst of testis (principal)
CPT/HCPCS: 76870

== ENCOUNTER 2024-10-09 08:23 | Day surgery (SDC) | payer BC, SELFPAY ==
[2024-10-07 14:38] VITALS: BMI 28.9
--- OUTSIDE RECORDS SUMMARY | 2024-10-09 08:46 | XMS_ITS | Clinical Summary ---
Author Organization Formerly [facility] Address [address] [place] [address] Care Team Providers Care Assessment Nurse Name Role Phone Unavailable Primary Care Provider Unavailabl e Social History Tobacco Use Types Packs/Day Years Used Date Smoking Tobacco: Never Assessed Sex and Gender Information Value Date Recorded Sex Assigned at Not on file Gender Identity Not on file Sexual Orientation Not on file Plan of Treatment Health Maintenance Due Date Last Done Comments Hepatitis C Virus Screening 1985 HIV Screening 1999 DTaP/Tdap/Td Vaccines (1 - Tdap) 2005 Hepatitis B Vaccines (1 of 3 - 19+ 3-dose series) 2005 COVID-19 Vaccine (2023-2 5 season) 2024 HPV Vaccines Aged Out No longer eligi ble based on patient's age to complete this topic Pneumococcal Vaccine: Pediat jazmine (0-5 Years) and At-Risk Patients (6 to 49 Years) Aged Out No longer eligible b ased on patient's age to complete this topic
--- OUTSIDE RECORDS SUMMARY | 2024-10-09 08:46 | XMS_ITS ---
Author Organization [facility] Address [address] [place] [address] Care Team Providers Care Chief Technical Officer Name Role Phone EVELINE TIPTON Primary Care Provider Jung Hollingsworth [phone] REASON FOR VISIT screening,hx polyps,duodenal adenoma,gerd Encounters Encounter Location Date Provider Diagnosis [facility] [place] [address] [place] [phone] 10/09/2024 Jung Duncan PLAN OF TREATMENT Next Appt Details Provider Name:Jung Duncan , 10/09/2024 09:30:00 AM, [address] [place] [address], [phone],
--- OUTSIDE RECORDS SUMMARY | 2024-10-09 08:46 | XMS_ITS | Patient Health Record ---
Author Organization [facility] Address [address] [place] [address] Care Team Providers Care Creative Writing English Professor Name Role Phone EVELINE DILLARD Primary Care Provider Jung Hollingsworth Unavailable [phone] ALLERGIES No Known Allergies REASON FOR REFERRAL Referring Provider First Name EVELINE Referring Provider Last Name SAEED Referred Organization [facility] Referred Provider Jung Goldstein Referred Address [address],[place], [place],[address],[place] Referred Provider Specialty Gastroentero logy General Notes Gosia Bonilla 024 03:26:47 PM EDT > requested an o blue referral from dr dillard's office for visit with dr goldstein on 06-05-2024 Referral Priority Routine MEDICATIONS Medication SIG (Take, Route, Frequency, Duration) Notes Start Date End Date Status NexIUM 40 MG 1 capsule Orally Onc e a day Not-Taking Meclizine HCl 25 MG 1 tablet as needed Orally prn Not-Taking Albuterol Sulfate ER 4 MG 1 tablet Orally prn Not-Taki ng NexIUM 40 MG 1 capsule Orally Onc e a day for 30 day(s) 03/15/2016 Not-Taking Ativan 1 MG 1 tablet at bedtime as needed Orally Once a day Active Zofran ODT 4 MG 1 tablet on the tong ue and allow to dissolve Orally Q 4-6 hrs prn nausea/vomiting Rare 03/15/2016 Active Omeprazole 20 MG 2 Orally Once a day Active IMMUNIZATIONS Vaccine Route Administration Date Status Comme nts Influenza Unknown 07/09/2018 Administered Influenza Unknown 05/29/2019 Administered Influenza Unknown 07/18/2021 Administered Influenza Unknown 06/18/2023 Administered SOCIAL HISTORY Tobacco Use: Social History Observation Description Date Details (start date - stop date) Former Smoker NA - NA Sex Assigned At : Social History Observation Description Sex Assigned At Unknown Tobacco Use/Smoking Question Answer Notes Patient is a former smoker How long has it been since you last smoked? 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 508385936 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 38406483 Problem Gastroesophageal reflux disease without esophagitis (K21.9) Active confirmed 040814258 Problem History of adenomatous polyp of colon (Z86.010) Active confirmed History of adenomatous polyp of colon (355048981) Problem Irritable bowel syndrome with diarrhea (K58.0) Active confirmed Irritable bowel syndrome with diarrhea (390789906) Problem Gagging episode (R19.8) Active confirmed Gagging (440068753) Problem Nausea (R11.0) Active confirmed Nausea (031674417) Problem Gastric polyps (K31.7) Active confirmed Benign neoplasm of stomach (70908685) Problem Esophageal reflux (K21.9) Active confirmed Esophageal reflux (846878468) Problem Colon cancer screening (Z12.11) Active confirmed Colon can cer screening (735216812) VITAL SIGNS Temperature 98.7 degrees Fahrenheit 06/05/2024 Blood pressure diastolic 00 mm Hg 06/05/2024 Height 72 in 06/05/2024 Blood pressure systolic 000 mm Hg 06/05/2024 Weight 213 lb 2 oz lbs 06/05/2024 BMI 28.90 kg/m2 06/05/2024 Encounters Encounter Location Date Provider [place] [facility] [place] [address] [place] [id number] 10/09/2024 Jung Goldstein [facility] [address] [place] [address] 06/05/2024 Jung Goldstein Gastroesophageal ref lux disease, esophagitis presence not specified K21.9 ; Duodenal adenoma D13.2 ; History of adenomatous polyp of colon Z86.010 and Colon cancer screening Z12.11 ASSESSMENTS Encounter Date Diagnosis Assessment Notes Treatment Notes Treatment Clinical Notes 06/05/2024 Gastroesophageal ref lux disease, esophagitis presence not specified (ICD-10 - K21.9) 06/05/2024 Duodenal adenoma (ICD-10 - D13.2) 06/05/2024 History of adenomato us polyp of colon (ICD-10 - Z86.010) 06/05/2024 Colon cancer screeni ng (ICD-10 - Z12.11) PLAN OF TREATMENT Pending Test Test Name Order Date Esophageal Motility study 10/25/2016 24 HR pH PROBE 10/25/2016 Future Test Test Name Order Date UPPER GI ENDOSCOPY 03/15/2016 UPPER GI ENDOSCOPY 02/17/2019 UPPER GI ENDOSCOPY 03/17/2019 UPPER GI ENDOSCOPY 06/09/2019 COLONOSCOPY 06/09/2019 UPPER GI ENDOSCOPY 02/14/2022 UPPER GI ENDOSCOPY 06/05/2024 COLONOSCOPY 06/05/2024 Next Appt Details Provider Name:Jung Goldstein , 10/09/2024 09:30:00 AM, [address] [place] [address] , [place], [place], [phone], Insurance Providers Payer Name Payer Address Payer Phone Subscriber Number Group Number Insured Name Patient Relationship to Insured Coverage Start Date Coverage End Date [facility] [employer] [address] [place] [address] [id number] EVANS ARBOLEDA Self - patient is the insured MEDICAL (GENERAL) HISTORY Medical History History ICD Code Denies SD,DM,CVA,Lung disease,renal dise ase Vertigo GERD--- upper endoscopy in [place] of 2015 revealed a moderate-sized hiatal hernia and erosive esophagitis--biopsies were negative for Law's esophagus. Normal 24 hour pH study and esophageal motility staudy in 2017. Seen by Dr. Ernst in 2017 for evaluation of HH and GERD, but Dr. Klever opted to hold off on any surgery. 2 upper endoscopies in March of 2019. These revealed a small duodenal bulb tubular adenoma which was removed and shown to have some low-grade dysplasia. There was a small hiatal hernia and no significant esophagitis, and biopsies were negative for any Law's esophagus Upper endoscopy in August of 2019 was negative for any residual nor any other adenomas in the duodenum. The area of the major papilla was inspected with the duodenoscope and appeared normal without any sign of adenomatous tissue; there was no sign of esophagitis Colonoscopy in August of 2019 revealed a small tubular adenoma Upper endoscopy in March 022 was negative for any residual duodenal adenoma. His previously known hiatal hernia was visualized but there was no evidence of any esophagitis and biopsies were negative for Law's esophagus. Duodenal biopsies were negative for celiac disease. Some gastric polyps were biopsied and were shown only to be hyperplastic. Surgical History Surgery Date(Month/Year) [place] teeth extraction 2009
--- OUTSIDE RECORDS SUMMARY | 2024-10-09 08:46 | XMS_ITS ---
Author Organization [facility] Address [address] [place] [address] Care Team Providers Care Patient Care Nursing Assistant Name Role Phone EVELINE TIPTON Primary Care Provider Jung Hollingsworth [phone] ALLERGIES No Known Allergies REASON FOR VISIT Patient presents today for a screening colon MEDICATIONS Medication SIG (Take, Route, Frequency, Duration) Notes Start Date End Date Status NexIUM 40 MG 1 capsule Orally Onc e a day Not-Taking Meclizine HCl 25 MG 1 tablet as needed Orally prn Not-Taking Albuterol Sulfate ER 4 MG 1 tablet Orally prn Not-Taki ng NexIUM 40 MG 1 capsule Orally Onc e a day for 30 day(s) 03/15/2016 Not-Taking Omeprazole 20 MG 2 Orally Once a day Active Ativan 1 MG 1 tablet at bedtime as needed Orally Once a day Active Zofran ODT 4 MG 1 tablet on the tong ue and allow to dissolve Orally Q 4-6 hrs prn nausea/vomiting Rare 03/15/2016 Active SOCIAL HISTORY Tobacco Use: Social History Observation [...] W/U Status Risk SNOMED Code Notes Problem Colon cancer screening (Z12.11) Active confirmed Colon cancer screening (820597165) VITAL SIGNS BMI 28.90 kg/m2 06/05/2024 Blood pressure systolic 000 mm Hg 06/05/20 24 Blood pressure diastolic 00 mm Hg 024 Height 72 in 06/05/2024 Temperature 98.7 degrees Fahrenheit 06/05/20 Weight 213 lb 2 oz lbs 06/05/2024 Encounters Encounter Location Date Provider Diagnosis [facility] [address] [place] [address] 06/05/2024 Jung Duncan Gastroesophageal ref lux disease, esophagitis presence not [...] ng (ICD-10 - Z12.11) PLAN OF TREATMENT Future Test Test Name Order Date UPPER GI ENDOSCOPY 06/05/2024 COLONOSCOPY 06/05/2024 Next Appt Details Follow Up: prn, Reason: Provider Name:Jung Duncan , 10/09/2024 09:30:00 AM, [address] [place] [address], [phone], Progress Notes * Examination Category Sub-Category Detail Notes General Examination GENERAL APPEARANCE: pleasant , well nourished, well developed, in no acute distress HEAD: EYES: sclera non-icteric EARS: NOSE: THROAT: NECK/THYROID: no cervical lymphade nopathy, neck supple HEART: S1, S2 normal CHEST: LUNGS: clear to auscultatio n bilaterally ABDOMEN: normal bowel sounds, no guarding or rigidity, no guarding or rigidity, no masses palpable, soft, nontender, nondistended NEUROLOGIC: alert and oriented SKIN: nonjaundiced, no spi ko angiomata EXTREMITIES: no edema PERIPHERAL PULSES: BACK: BREASTS: MUSCULOSKELETAL: MALE GENITOURINARY: LYMPH NODES: RECTAL EXAM: FEMALE GENITOURINARY: ORAL CAVITY: mucosa moist
[2024-10-09 08:49] VITALS: BP 151/95; PULSE 80; RESP 16; TEMP 37.2; O2SAT 97
[2024-10-09] MEDS: Lactated Ringers 1,000 ML 80 ML IVCONT (08:57)
--- NOTE | 2024-10-09 08:57 | HO.ANESPROP2 ---
[facility] Active Problems Active Problems: All Active Problems Duodenal adenoma (Acute) Encounter for routine adult physical exam with abnormal findings (Acute) Asthma (Acute) Elevated BP without diagnosis of hypertension (Acute) Physical exam (Acute) Skin lesion (Acute) Sebaceous cyst of right axilla (Acute) Excessive daytime sleepiness (Acute) Snoring (Acute) Elevated liver enzymes (Acute) Left foot pain (Acute) Fatigue (Acute) Anxiety (Acute) Right shoulder pain (Acute) Past Medical History Medical History (Updated 10/07/24 @ 14:42 by Jacqueline Gasca RN) Vertigo GERD (gastroesophageal reflux disease) Family History Family History Father Hepatitis C Mother No problems noted. Sister No problems noted. Family history of problems with anesthesia: No Surgical History Surgical History (Updated 10/07/24 @ 14:39 by Jacqueline Gasca RN) Hx of wisdom tooth extraction H/O colonoscopy History of esophagogastroduodenoscopy History of Problems with Anesthesia: No Social History Social History Housing: House Alcohol intake: current Alcohol intake frequency: holidays/special occasions only Alcohol type: beer Patient Tobacco Use Status: Former Tobacco user Years Smoked: 10 +/- e-Cigarette/Vaping Use: Never Used Second Hand Smoke Exposure: No Use of substances other than those prescribed or required for medical reasons: Yes Substance Use Frequency: Occasionally Have you been hit, kicked, punched, or otherwise hurt by someone within the past year? If so, by whom?: No Are you DNR?: No Advance Directives: No Advance Directives Information Provided: Yes Advance Directives on File: No Recently lost weight without trying: No Eating poorly because of decreased appetite: No Nutrition Risks: No Nutritional Risk Poor oral hygiene: No service: No Current occupational status: employed Current occupation: [employer] Current occupational exposures/hazards: No Cognitive needs: No Hearing needs: No Vision needs: No Meds Allergies Allergy/AdvReac Type Severity Reaction Status Date / Time No Known Allergies Allergy Verified 10/02/23 10:43 [No Known Allergies*] Active Medications: Current Medications Lactated Ringer's (Lr) 1,000 mls @ 80 mls/hr IVCONT .[id number] JOANNA Naloxone HCl (Naloxone Hcl 0.4 Mg/Ml Vial) 0.04 mg IVPUSH Q5M PRN PRN Reason: Excessive sedation or RR < 8 Sodium Biphosphate/Sodium Phosphate (Sodium Phosphate,Storey-Dibasic 133 Ml Enema) 133 ml RI ONCE PRN PRN Reason: Poor Colonoscopy Prep Results Home Medications ?Medication ?Instructions ?Recorded ?Confirmed ?Last Taken ?Type omeprazole 40 mg capsule,delayed 40 mg PO BID 07/25/21 10/07/24 Unknown History release meclizine 25 mg tablet 25 mg PO DAILY PRN Vertigo 03/20/22 10/07/24 Unknown History Exam Height,Weight and Vital Signs: Height 6 ft Weight 96.615 kg Last Vital Signs Temp 98.9 F 10/09/24 08:49 Pulse 80 10/09/24 08:49 Resp 16 10/09/24 08:49 BP 151/95 H 10/09/24 08:49 Pulse Ox 97 10/09/24 08:49 O2 Del Method Room Air 10/09/24 08:49 Airway Mallampati Class: II (top front tooth bonded) TM Dist: >3cm Neck ROM: Full Heart: rrr Lungs: cta Assessment and Plan Assessment Anesthesia Assessment: Anesthesia Plan Discussed and Chart Reviewed Final Anesthetic Review Family History of Problems with Anesthesia: No History of Problems with Anesthesia: No NPO: Yes ASA Class: II Final Preanesthetic Review: No Changes in Pt Med Stat, Meds/Allgs Chart Reviewed and Consent Obtained/Reviewed Patient Risk: Low Procedure Risk: Intermediate Anesthetic Plan Anesthetic Plan: MAC: Disposition: Standard PACU
[2024-10-09 10:55] VITALS: BP 98/58; PULSE 77; RESP 16; TEMP 37.1; O2SAT 97
--- NOTE | 2024-10-09 11:03 | PM.OP ---
Brief Operative Note Date of Service: 10/09/24 Pre-op diagnosis: GERD, Screening Post-op diagnosis: other (Hiatal hernia, Gastric polyps, Colon polyp) Procedure: EGD, Colonoscopy to the cecum and TI with hot snare polypectomy x 1 Surgeon: Jung Duncan MD Anesthesia: MAC Was an Refrigeration Repair Supervisor used for this Procedure?: No Estimated blood loss (mL): 0 Pathology: other (A. Colon polyp at 30cm) Condition: stable Disposition: PACU
[2024-10-09 11:09] VITALS: BP 119/71; PULSE 81; RESP 20; O2SAT 97
[2024-10-09 11:20] VITALS: BP 122/69; PULSE 81; RESP 20; TEMP 36.6; O2SAT 97
--- NOTE | 2024-10-09 11:26 | OP_ITS ---
DATE OF SERVICE: 10/09/2024 SURGEON: Jung Duncan MD INDICATIONS: The patient presents for evaluation of a previous history of a duodenal tubular adenoma and chronic gastroesophageal reflux, and colorectal cancer screening in regard to a history of a tubular adenoma of the colon. Full consent has been obtained from him for both procedures, including risks of bleeding and perforation. PREOPERATIVE DIAGNOSIS: POSTOPERATIVE DIAGNOSIS: PROCEDURE PERFORMED: Esophagogastroduodenoscopy, and colonoscopy to the cecum and terminal ileum with hot snare polypectomy x1. ESTIMATED BLOOD LOSS: COMPLICATIONS: ANESTHESIA: Medication used, monitored anesthesia care. ASSISTANTS: SPECIMENS: PREOPERATIVE DIAGNOSES: Gastroesophageal reflux, history of duodenal adenoma, history of colon tubular adenoma, colorectal cancer screening. POSTOPERATIVE DIAGNOSES: Gastroesophageal reflux, history of duodenal adenoma, history of colon tubular adenoma, colorectal cancer screening, hiatal hernia, gastric polyps, colon polyp, internal hemorrhoids. DESCRIPTION OF PROCEDURE: The patient was placed in the left lateral decubitus position. The Olympus video gastroscope was passed in the posterior oropharynx and upper esophagus under direct vision. The scope was passed slowly to the distal esophagus. The gastroesophageal junction appeared at 38 cm. There was some very minimal irregularity consistent with reflux. There was no evidence of any esophagitis nor any gross evidence of Law's mucosa. The scope entered the stomach. There was a small hiatal hernia. The scope was advanced to the pylorus, and the duodenum was cannulated to the descending portion. The entire duodenum was carefully inspected, and I did not visualize any sign of polyp tissue. The major papilla was able to be visualized and appeared normal. The scope was withdrawn back in the stomach. The gastric antrum and body appeared normal with good peristalsis. The scope was retroflexed visualizing the proximal stomach carefully, which appeared normal other than multiple hyperplastic gastric polyps. There was no mass or ulceration. The scope was straightened. The scope was withdrawn back to the esophagus. Proximal to the EG junction. The esophageal mucosa appeared normal. The scope was withdrawn from the patient. Of note, I did not obtain biopsies from the gastroesophageal junction nor gastric polyps as those had been biopsied in the past and the biopsies did not show any significant findings.. The patient was turned around for the colonoscopy. The digital rectal exam revealed no abnormalities. The Olympus video pediatric colonoscope was entered into the rectum and advanced easily to the cecum. Once in the cecum, I did identify normal-appearing cecal pouch with appendiceal orifice and a normal-appearing ileocecal valve. The terminal ileum was cannulated and appeared normal. The scope was withdrawn back in the colon. The entire cecum and ileocecal valve appeared normal. The scope was slowly withdrawn assessing all mucosal surfaces carefully. Preparation was excellent. At 30 cm was an approximately 10 mm polyp which was removed by hot snare polypectomy and recovered by suction. The polypectomy site appeared clean, without any sign of residual polyp nor bleeding. I did not visualize any other polyps, colitis, nor angiodysplasia. In the rectum, the scope was retroflexed visualizing some small internal hemorrhoids but no other pathology. The rectal mucosa appeared normal. The scope was straightened and withdrawn from the patient. He tolerated the procedures well and was returned to the recovery area in stable condition. IMPRESSION: 1. Colon polyp. 2. Internal hemorrhoids. 3. Hiatal hernia. 4. Gastric polyps. 5. Gastroesophageal reflux. PLAN: The results of the pathology will be checked. Given his history, I would recommend a repeat upper endoscopy and colonoscopy in 3 years for further surveillance. He will continue his 40 mg omeprazole daily. He was advised not to use any aspirin and NSAIDs for at least 1 week. This has been discussed with his . MD DI Cuenca/PRESLEY / [phone] MTDD
== END 2024-10-09 11:45 | disposition home or self-care (01) ==
PROVIDERS: PCP Nurse Practitioner Family; Visit Provider Internal Medicine
PROC: (CPT 45385; principal; 2024-10-09 09:30)
DX: Z12.11 Encounter for screening for malignant neoplasm of colon (principal); Z86.0101 Personal history of adenomatous and serrated colon polyps; D12.5 Benign neoplasm of sigmoid colon; K64.8 Other hemorrhoids; K21.9 Gastro-esophageal reflux disease without esophagitis; K31.7 Polyp of stomach and duodenum; K44.9 Diaphragmatic hernia without obstruction or gangrene; Z79.899 Other long term (current) drug therapy
CPT/HCPCS: 45385; 43235; 88305; J1596; J1885; J2003; J2250; J2704

== ENCOUNTER 2024-11-04 14:49 | Outpatient (AMB) | payer BC, SELFPAY ==
[2024-11-04 14:55] VITALS: BP 140/82; PULSE 83; TEMP 36.6; O2SAT 97; BMI 27.9
--- NOTE | 2024-11-04 14:55 | MHC.PC.OV ---
Vital Signs 11/04/24 14:55 11/04/24 15:36 Height 6 ft Weight 206 lb BMI 27.9 BP 140/82 H 136/78 Blood Pressure Location Lt brachial Position Sitting Pulse 83 Pulse Source Pulse Oximeter Temp 97.8 F Temp Source Oral Pulse Oximetry (%) 97 Intake Visit Reasons: PE Allergies No Known Allergies [No Known Allergies*] Allergy (Verified 11/04/24 15:25) Medication List - Last Reconciled 11/04/24 by EDILIA Thacker- lorazepam (Ativan) 1 mg PO TID PRN omeprazole 40 mg PO ONCE ondansetron 4 mg PO Q8H PRN Tobacco use date assessed: 11/04/24 Dental Screening Dental Screen Date: 11/04/24 Did you have a dental visit in the last 12 months?: Yes Did you have a dental problem in the last 6 months where you did not have access to dental care?: No Was dental information given to patient?: Patient has dentist HPI PE HPI Details History of Present Illness The patient is a 39-year-old male presenting with fertility and anxiety evaluation. The main focus of the visit concerns proactive steps toward understanding fertility status, due to daily fertilization testing efforts. Concurrently, the patient has a history of anxiety, though he denies severe manifestations such as suicidal or homicidal thoughts. He also denies any accompanying symptoms like numbness, tingling, or other medical concerns such as chest pain or shortness of breath. The anxiety described does appear to have a noticeable presence but is managed internally without current intervention. The physical examination noted no abnormalities. Health Maintenance Social History - Actively trying to conceive, as indicated by his involvement in daily fertilization testing. - Reports some level of anxiety but denies formal mental health issues impacting lifestyle. Review of Systems - Psychological: Reports feeling well but admits to some anxiety. - Cardiovascular: Denies chest pain, shortness of breath. - Gastrointestinal: Denies abdominal pain. - Genitourinary: Denies urinary symptoms. - Neurological: Denies numbness and tingling. - Psychiatric: Denies suicidal thoughts, denies homicidal thoughts. Physical Exam General: Cooperative, healthy appearing, comfortable, no acute distress and well developed Orientation: Patient oriented x3 Limitations: No limitations Head: Normal to inspection Ears: Hearing grossly normal bilaterally Nose: Normal external nose present Face and sinus: Normal facial exam Eyes: Appearance normal, both eyes and all related structures Neck: Normal visual inspection and Yes full ROM Respiratory: Normal respiratory effort and able to speak in complete sentences. Clear to auscultation bilaterally Cardiovascular: Regular rate and rhythm. Normal S1 and S2 GI: Normal to inspection. Soft to palpation and nontender Skin: No rashes or lesions noted Neuro: Patient oriented x3 Extremities: Normal to inspection Results Plan The visit emphasizes the patient's commitment to fertility testing and management of existing anxiety. No immediate clinical interventions were deemed necessary given the denial of significant symptoms or distress beyond expressed anxiety. Current health circumstances appear stable without immediate need for intervention adjustments. Discussion Notes During the consultation, we discussed the ongoing efforts toward fertilization testing. The patient is engaging regularly in assessments to determine fertility potential. Anxiety was reviewed as a concurrent factor, but without severe implications requiring urgent intervention. Overall, recommended understanding and mindfulness regarding anxiety was suggested, while continuing current non-pharmaceutical/pharmaceutical approaches as no presenting symptoms required medicinal intervention or detailed alterations in lifestyle or medical therapies. Patient Instructions - Continue fertility testing as planned. - Observe and monitor anxiety levels; consider non-medicinal relaxation or stress-reduction practices. - Seek guidance if anxiety intensifies or impacts quality of life. - Report any new symptoms or concerns promptly. [facility] Medical History Vertigo GERD (gastroesophageal reflux disease) Surgical History Hx of wisdom tooth extraction H/O colonoscopy History of esophagogastroduodenoscopy Family History Father Hepatitis C Mother No problems noted. Sister No problems noted. Social History Housing: House Alcohol intake: current Alcohol intake frequency: holidays/special occasions only Alcohol type: beer Patient Tobacco Use Status: Former Tobacco user Years Smoked: 10 +/- e-Cigarette/Vaping Use: Never Used Second Hand Smoke Exposure: No service: No Current occupational status: unemployed Current occupational exposures/hazards: No Cognitive needs: No Hearing needs: No Vision needs: No Questionnaire PHQ-9 Over the last 2 weeks, how often have you been bothered by any of the following problems? 1. Little interest or pleasure in doing things: not at all 2. Feeling down, depressed, or hopeless: not at all 3. Trouble falling or staying asleep, or sleeping too much: several days 4. Feeling tired or having little energy: not at all 5. Poor appetite or overeating: not at all 6. Feeling bad about yourself - or that you are a failure or have let yourself or your family down: not at all 7. Trouble concentrating on things, such as reading the newspaper or watching television: not at all 8. Moving or speaking so slowly that other people could have noticed. Or the opposite - being so fidgety or restless that you have been moving around a lot more than usual: not at all 9. Thoughts that you would be better off or of hurting yourself in some way: not at all Total score: 1 Depression Screening Interpretation: Negative Depression Screening Done: Yes 87150 - PHQ-9 Billing: Yes Source: Developed by Drs. Jung Pena, Veronica Conklin, Philipp Lynn and colleagues, with an educational jasper from [employer]. Thrive Questionnaire Date Thrive assessed: 11/04/24 I am a: Patient What is your living situation today?: I have a steady place to live Within the past 12 months, did the food you bought not last and you didn't have the money to get more?: Never true Within the past 12 months, did you worry whether your food would run out before you got money to buy more?: Never true Do you have trouble paying for medicines?: No Do you have trouble getting transportation to medical appointments?: No Do you have trouble paying your heating and electricity bill?: No Do you have trouble taking care of your child, family member or friend?: No Do you have trouble with day-to-day activities such as bathing, preparing meals, shopping, managing finances, etc.?: No Are you currently unemployed and looking for a job?: Yes Are you interested in more education?: No Please select the resources that you would like help with: None Currently or been in a relationship where the following occur: No concerns reported THRIVE Score: 0 AUDIT C Alcohol Use Questionnaire (AUDIT-C) 1. How often do you have a drink containing alcohol?: 4 or more times a week 2. How many drinks containing alcohol do you have on a typical day when you are drinking?: 3 or 4 3. How often do you have six or more drinks on one occasion?: Monthly Total Score: 7 Score Reviewed/Action Taken: Yes ISAEL-7 AMB Questionnaire ISAEL-7 Date ISAEL - 7 assessed: 11/04/24 Feeling nervous, anxious, or on edge: 0 = Not at all Not being able to stop or control worryin = Not at all Worrying too much about different things: 0 = Not at all Trouble relaxin = Not at all Being so restless that it is hard to sit still: 0 = Not at all Becoming easily annoyed or irritable: 0 = Not at all Feeling afraid as if something awful might happen: 0 = Not at all Total ISAEL-7 score (0-4 normal; 5-9 mild; 10-14 moderate; 15-21 severe): 0 Source: Developed by Drs. Jung Pena, Veronica Conklin, Philipp Lynn and colleagues, with an educational jasper from [employer]. ISAEL-7 Assessment Billing ISAEL-7 Assessment Tool: ISAEL-7 Assessment 53627 Physical exam (Primary Care) Vital Signs: Last Vital Signs Temp 97.8 F 11/04/24 14:55 Pulse 83 11/04/24 14:55 BP 140/82 H 11/04/24 14:55 Pulse Ox 97 11/04/24 14:55 BMI result Body Mass Index 27.9 Tobacco/Smoking Status: Tobacco use Status Tobacco use date assessed 11/04/24 11/04/24 14:58 Patient Tobacco Use Status Former Tobacco user 11/04/24 14:58 e-Cigarette/Vaping Use Never Used 11/04/24 14:58 PHQ-9: PHQ-9 Score PHQ-9: Total score 1 11/04/24 14:59 Depression Screening Interpretation: Negative Thrive Assessment: Date of Thrive Assessment Date Thrive assessed 11/04/24 11/04/24 14:58 Currently or been in a relationship where the following occur: No concerns reported Coding Level of Care Code Est Pt Prev Care 18-39y(91203) Diagnoses Physical exam Z00.00 Anxiety F41.9 Additional Codes ISAEL-7 Assessment Billing - ISAEL-7 Assessment Tool: ISAEL-7 Assessment 11757 ([id number]) PHQ-9 - 37253 - PHQ-9 Billing: Yes ([id number]) Assessment & Plan Assessment & Plan (1) Physical exam: Code(s): Z00.00 - Encounter for general adult medical examination without abnormal findings Category: Medical Plan: . (2) Anxiety: Code(s): F41.9 - Anxiety disorder, unspecified Category: Medical Plan . Orders: Orders Lipid Panel Today Z00.00 - Encounter for general adult medical examination without abnormal findings Complete Blood Count Auto Diff Today Z00.00 - Encounter for general adult medical examination without abnormal findings Comprehensive [place]. Panel Fast Today Z00.00 - Encounter for general adult medical examination without abnormal findings TSH reflex Free T4 Today Z00.00 - Encounter for general adult medical examination without abnormal findings UA CC w/rflx Micro + Cult Today Z00.00 - Encounter for general adult medical examination without abnormal findings Medications: Changed From lorazepam (Ativan) 1 mg PO TID PRN 9 tabs 0RF alcohol withdrawal To lorazepam (Ativan) 1 mg PO DAILY 30 days PRN 30 tabs 0RF alcohol withdrawal
[2024-11-04 15:36] VITALS: BP 136/78
--- OUTSIDE RECORDS SUMMARY | 2024-11-04 17:56 | XMS_ITS ---
Author Organization [facility] Address [address] [place] [address] Care Team Providers Care Animal Treatment Investigator Name Role Phone EVELINE TIPTON Primary Care Provider Jung Hollingsworth [phone] Allergies No Known Allergies REASON FOR VISIT Patient presents today for a screening colon Medications Medication SIG (Take, Route, Frequency, Duration) Notes [...] 4-6 hrs prn nausea/vomiting Rare 03/15/2016 Active Social History Tobacco Use: Social History Observation Description Date Details (start date - stop date) Former Smoker NA - NA Tobacco Use/Smoking Question Answer Notes Patient is a former smoker How long has it been since you last smoked? 1-5 years Section Notes: Nonsmoker early 2015; no sig alcohol Problems Problem Type SNOMED Code ICD Code Onset Dates Problem Status W/U Status Risk Notes Problem Colon cancer screening (213975666) Colon cancer screening (Z12.11) Active confirmed Vital Signs Temperature 98.7 degrees Fahrenheit 06/05/20 24 Blood pressure systolic 000 mm Hg 06/05/20 24 Blood pressure diastolic 00 mm Hg 024 Height 72 in 06/05/2024 Weight 213 lb 2 oz lbs 06/05/2024 BMI 28.90 kg/m2 06/05/2024 Encounters Encounter Location Date Provider Diagnosis [facility] [address] [place] [address] 06/05/2024 Jung Duncan Gastroesophageal ref lux disease, esophagitis presence not specified K21.9 ; 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 His reflux seems to be quite stable on his current regimen of omeprazole of 40mg per day as long as he avoids any dietary indiscretion. I did recommend a followup upper endoscopy in regard to the previous duodenal adenoma removed and his last upper endoscopy being over 2 years ago. He will also have a screening colonoscopy on the same day given the history of a tubular adenoma removed in 2019. We did review the rationale for that in regard to colorectal cancer prevention. Full consent was obtained from him for both procedures, including risks of bleeding and perforation. The procedures will be done with monitored anesthesia care. Robert was comfortable with this plan. Thank you again for allowing me to participate in Robert's care. I shall continue to keep you advised of his progress. 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 His reflux seems to be quite stable on his current regimen of omeprazole of 40mg per day as long as he avoids any dietary indiscretion. I did recommend a followup upper endoscopy in regard to the previous duodenal adenoma removed and his last upper endoscopy being over 2 years ago. He will also have a screening colonoscopy on the same day given the history of a tubular adenoma removed in 2019. We did review the rationale for that in regard to colorectal cancer prevention. Full consent was obtained from him for both procedures, including risks of bleeding and perforation. The procedures will be done with monitored anesthesia care. Robert was comfortable with this plan. Thank you again for allowing me to participate in Robert's care. I shall continue to keep you advised of his progress. 06/05/2024 History of adenomatous polyp of colon (ICD-10 - Z86.010) Overall, Robert appears well. His reflux seems to be quite stable on his current regimen of omeprazole of 40mg per day as long as he avoids any dietary indiscretion. I did recommend a followup upper endoscopy in regard to the previous duodenal adenoma removed and his last upper endoscopy being over 2 years ago. He will also have a screening colonoscopy on the same day given the history of a tubular adenoma removed in 2019. We did review the rationale for that in regard to colorectal cancer prevention. Full consent was obtained from him for both procedures, including risks of bleeding and perforation. The procedures will be done with monitored anesthesia care. Robert was comfortable with this plan. Thank you again for allowing me to participate in Robert's care. I shall continue to keep you advised of his progress. 06/05/2024 Colon cancer screening (ICD-10 - Z12.11) Overall, Robert appears well. His reflux seems to be quite stable on his current regimen of omeprazole of 40mg per day as long as he avoids any dietary indiscretion. I did recommend a followup upper endoscopy in regard to the previous duodenal adenoma removed and his last upper endoscopy being over 2 years ago. He will also have a screening colonoscopy on the same day given the history of a tubular adenoma removed in 2019. We did review the rationale for that in regard to colorectal cancer prevention. Full consent was obtained from him for both procedures, including risks of bleeding and perforation. The procedures will be done with monitored anesthesia care. Robert was comfortable with this plan. Thank you again for allowing me to participate in Robert's care. I shall continue to keep you advised of his progress. Plan Of Treatment Future Test Test Name Order Date UPPER GI ENDOSCOPY 06/05/2024 COLONOSCOPY 06/05/2024 Next Appt Details Follow Up: prn, Reason: Progress Notes * ROBLES EVANS MahanDOB:[birth year] (38 yo M)Acc No.[id number]:06/05/2024 Progress Notes Patient:?EVANS ARBOLEDA Provider:?Jung Duncan MD :1985???Age:38 Y???Sex:Male Mundo e:06/05/2024 Address:[address] [place] [address] [id number] Pcp:EVELINE TIPTON Subjective: * Chief Complaints: * ???Patient presents today fo r a screening colon * HPI: ???incontinence:? I saw Robert in followup today in regard to his chronic gastroesophageal reflux, history of a duodenal adenoma, history of a tubular adenoma of the colon, and need for colorectal cancer screening. ?I last saw Robert in March of 2022, at which time he underwent a followup upper endoscopy. This did not reveal any sign of residual adenoma in the duodenum. There was no sign of any celiac disease on duodenal biopsies. There was no evidence of any esophagitis nor Law's esophagus. Since that time he has been feeling well. He has remained on omeprazole 40 mg daily with good relief of reflux symptoms other than when he tends to have some dietary indiscretion or a few beers . He denies any significant heartburn, dysphagia, anorexia, early satiety, nausea, nor vomiting. He denies any abdominal pain, jaundice, nor weight loss. He denies any change in bowel habits, hematochezia, or melena. He denies any known family history of colon cancer. * ROS:?General/Constitutional:?Change in appetite?denies.?Chills?denies.?Fatigue?denies.?Ophthalmologic:?Comments?all negative.?ENT:?Comments?all negative.?Respiratory:?hemoptysis?denies.?Cough?denies.?Cardiovascular:?Chest pain?denies.?Orthopnea?denies.?Gastrointestinal:?Comments?See HPI for details.?Genitourinary:?Hematuria?denies.?Dysuria?denies.?Musculoskeletal:?Painful joints?denies.?Weakness?denies.?Skin:?Itching?denies.?Rash?denies.?Neurologic:?Headache?denies.?Seizures?denies.?Psychiatric:?Comments?all negative.? * Medical History:? * Surgical History:?[place] sam[place] th extraction 2009 * Hospitalization/Major Diagno stic Procedure:?No Hospitalization History. * Family History:?Father: yannick cota?Mother: alive.? No colorectal cancer nor any other specific GI diseases. No family history of liver cancer. * Social History:?Tobacco Use:?Tobacco Use/Smoking?Patient is a?former smoker,?How long has it been since you last smoked??1-5 years.?Drugs/Alcohol:?Alcohol Screen?Points: 2, Interpretation: Negative.?Miscellaneous:?Marital status: . Occupation: IT computer support. ???Nonsmoker early 2015; no sig alcohol. * Medications:?TakingAtivan 1 MG Tablet 1 tablet at bedtime as needed Orally Once a dayZofran ODT 4 MG Tablet Dispersible 1 tablet on the tongue and allow to dissolve Orally Q 4-6 hrs prn nausea/vomiting, Notes: RareOmeprazole 20 MG Capsule Delayed Release 2 Orally Once a dayTaking Ativan 1 MG Tablet 1 tablet at bedtime as needed Orally Once a dayTaking Zofran ODT 4 MG Tablet Dispersible 1 tablet on the tongue and allow to dissolve Orally Q 4-6 hrs prn nausea/vomiting, Notes: RareTaking Omeprazole 20 MG Capsule Delayed Release 2 Orally Once a dayNot-Taking/PRNNexIUM 40 MG Capsule Delayed Release 1 capsule Orally Once a dayMeclizine HCl 25 MG Tablet Chewable 1 tablet as needed Orally prnAlbuterol Sulfate ER 4 MG Tablet Extended Release 12 Hour 1 tablet Orally prnNexIUM 40 MG Capsule Delayed Release 1 capsule Orally Once a dayMedication List reviewed and reconciled with the patientNot-Taking/PRN NexIUM 40 MG Capsule Delayed Release 1 capsule Orally Once a dayNot-Taking/PRN Meclizine HCl 25 MG Tablet Chewable 1 tablet as needed Orally prnNot-Taking/PRN Albuterol Sulfate ER 4 MG Tablet Extended Release 12 Hour 1 tablet Orally prnNot-Taking/PRN NexIUM 40 MG Capsule Delayed Release 1 capsule Orally Once a dayMedication List reviewed and reconciled with the patient * Allergies:?N.K.D.A.yes[Aller gies Verified] Objective: * Vitals:?Wt: 213 lb 2 oz, Ht: 72 in, BMI:28.90 Index, BP: 000/00 mm Hg, Temp: 98.7. * Examination: ???General Examination: ?GENERAL APPEARANCE:?pleasant, well nourished, well developed, in no acute distress.?EYES:?sclera non-icteric.?ORAL CAVITY:?mucosa moist.?NECK/THYROID:?no cervical lymphadenopathy, neck supple.?SKIN:?nonjaundiced, no spider angiomata.?HEART:?S1, S2 normal.?LUNGS:?clear to auscultation bilaterally.?ABDOMEN:?normal bowel sounds, no guarding or rigidity, no guarding or rigidity, no masses palpable, soft, nontender, nondistended.?EXTREMITIES:?no edema.?NEUROLOGIC:?alert and oriented.? 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 Overall, Robert appears well. H is reflux seems to be quite stable on his current regimen of omeprazole of 40mg per day as long as he avoids any dietary indiscretion. I did recommend a followup upper endoscopy in regard to the previous duodenal adenoma removed and his last upper endoscopy being over 2 years ago. He will also have a screening colonoscopy on the same day given the history of a tubular adenoma removed in 2019. We did review the rationale for that in regard to colorectal cancer prevention. Full consent was obtained from him for both procedures, including risks of bleeding and perforation. The procedures will be done with monitored anesthesia care. Robert was comfortable with this plan. Thank you again for allowing me to participate in Robert's care. I shall continue to keep you advised of his progress. Plan: * Treatment: 2.?Duodenal adenoma?Procedure: UPPER GI ENDOSCOPY (Ordered for 06/05/2024)* with MACsched for 10/09/24 at 11:30 am 3.?History of adenomatous polyp of colon?Procedure: COLONOSCOPY (Ordered for 06/05/2024)* with MACsched for 10/09/24 at 11:30 ammiralax 4.?Colon cancer screening?Procedure: COLONOSCOPY (Ordered for 06/05/2024)* with MACsched for 10/09/24 at 11:30 ammiralax * Procedure Codes:?1036F TOBAC CO NON-NCIVQ2096 BP SCR NOT PRFRM REC REASON NOS * Preventive Medicine:? ??Counseling:?Care goal follow-up plan:?Above Normal BMI Follow-up?Giving encouragement to exercise,?BMI management provided?Yes.? * Follow Up:?prn * * Sign off status: Completed true * Provider:?Jung Duncan MD Date:? 024 Generated for Brina elizabeth/Bert/Florindaitting on:?11/04/2024 05:56 PM EST History and Physical Notes * HPI (History of Present Illness) Category Sub-Category Detail Notes Category Not es incontinence I saw Robert in followup today in regard to his chronic gastroesophageal reflux, history of a duodenal adenoma, history of a tubular adenoma of the colon, and need for colorectal cancer screening. I last saw Robert in March of 2022, at which time he underwent a followup upper endoscopy. This did not reveal any sign of residual adenoma in the duodenum. There was no sign of any celiac disease on duodenal biopsies. There was no evidence of any esophagitis nor Law's esophagus. Since that time he has been feeling well. He has remained on omeprazole 40 mg daily with good relief of reflux symptoms other than when he tends to have some dietary indiscretion or a few beers . He denies any significant heartburn, dysphagia, anorexia, early satiety, nausea, nor vomiting. He denies any abdominal pain, jaundice, nor weight loss. He denies any change in bowel habits, hematochezia, or melena. He denies any known family history of colon cancer. Examination Category Sub-Category Detail Notes Category Not es General Examination GENERAL APPEARANCE: pleasant , well [...]
--- OUTSIDE RECORDS SUMMARY | 2024-11-04 17:56 | XMS_ITS | Clinical Summary ---
Author Organization [facility] Address [address] [place] [address] Care Team Providers Care Title Supervisor Name Role Phone Unavailable Primary Care Provider [...]
--- OUTSIDE RECORDS SUMMARY | 2024-11-04 17:56 | XMS_ITS ---
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 Screening,hx polyps,du odenal adenoma,gerd. * Medical History:? Objective: * Vitals:? Assessment: * Assessment: 1.?Colon cancer screening - Z12.11 (Primary)???2.?Colon polyps - K63.5???3.?Other hemorrhoids - K64.8???4.?Gastroesophageal reflux disease - K21.9???5.?Hiatal hernia - K44.9???6.?Polyp of stomach and duodenum - K31.7??? Plan: * Treatment: * Procedure Codes:?53454 LESIO N REMOVAL COLONOSCOPY, Modifiers: [place] , [address] UPPR GI ENDOSCOPY, DIAGNOSIS * * The named appointment provid er may or may not be the originator of this progress note, and it is not deemed complete until electronically signed by the appointment provider. Sign off status: Pending * Provider:?Jung Duncan MD Date:? 025 Generated for Brina elizabeth/Bert/eTransmitting on:?11/04/2024 05:56 PM EST
--- OUTSIDE RECORDS SUMMARY | 2024-11-04 17:56 | XMS_ITS | Patient Health Record ---
Author Organization [facility] Address [address] [place] [address] Care Team Providers Care Hookman Name Role Phone EVELINE ALBERTS Primary Care Provider Jung Hollingsworth [phone] Allergies No Known Allergies Results Component Value Reference Range Notes Pathology (Not yet reviewed by provider) Interpretation: Performing Lab:[facility], [address] [place] [phone] Notes/Report: Name: Corey Arboleda Age/Sex: 39/M : 1985 Unit#: [id number] Attend Dr: Jung Goldstein MD Re10/09/24 Status : [facility] Location: [facility] Disch: SPEC : [id number] RECD: 10/09/24 STATUS: BEREKET WEBSTER NUM: [id number] MAIRA: 10/09/248 [facility] DR: Jung Goldstein MD ENTERED: 10/09/24 41 SP TYPE: Surgical OTHR DR: Eveline Alberts [facility] ORDERED: HE Stain/3, Gross Micro L4 Diagnosis Colon, at 30 cm, emil yp: Tubular adenoma; negative for high-grade dysplasia and carcinoma. Clinical History Pre-Op Dx: Screening , history of polyps, GERD Post-Op Dx: Hiatal h ernia, reflux, gastric polyps, colon polyp, hemorrhoids Microscopic Description Microscopic sections reviewed. Material Received Polyp at 30 Gross Description Received in formalin labeled ?polyp at 30? is a fragment of red-pink soft tissue measuring 0.3 cm in greatest d imension which is wrapped in lens paper and entirely submitted for microscopic examinat ion, 1 piece in cassette [facility] Copies To: Eveline Alberts [facility] [place] [address] [place], [place] [id number] Jung Goldstein MD [facility] [address] [place], [place] [id number] Signed (si gnature on file) Lulu Hutchison 10/12/24 1242 END OF REPORT Reason For Referral Referring Provider First Name EVELINE Referring Provider Last Name SAEED Referred Organization [facility] Referred Provider Jung Goldstein Referred Address [address] [place] [address],[place] [address],[place], [place],[address],[place] Referred Provider Specialty Gastroentero logy General Notes Gosia Bonilla 024 03:26:47 PM EDT > requested an o blue referral from dr alberts's office for visit with dr goldstein on 06-05-2024 Referral Priority Routine Medications Medication SIG (Take, Route, Frequency, Duration) [...] MG 2 Orally Once a day Active Immunizations Vaccine Route Administration Date Status Comme nts Influenza Unknown 07/09/2018 Administered Influenza Unknown 05/29/2019 Administered Influenza Unknown 07/18/2021 Administered Influenza Unknown 06/18/2023 Administered Social History Tobacco Use: Social History Observation Description Date Details (start date - stop date) Former Smoker NA - NA Tobacco Use/Smoking Question Answer Notes Patient is a former smoker How long has it been since you last smoked? 1-5 years Section Notes: Nonsmoker early 2015; no sig alcohol Nonsmoker early 2015; no sig alcohol Nonsmoker early 2015; no sig alcohol Nonsmoker early 2015; no sig alcohol Nonsmoker early 2015; no sig alcohol Nonsmoker early 2015; no sig alcohol Nonsmoker early 2015; no sig alcohol Problems Problem Type SNOMED Code ICD Code Onset Dates Problem Status W/U Status Risk Notes Problem Colon cancer screening (441338380) Colon cancer screening (Z12.11) Active confirmed Problem Esophageal reflux (391011868) Esophageal reflux (K21.9) Active confirmed Problem History of adenomatous polyp of colon (080884217) History of adenomatous polyp of colon (Z86.010) Active confirmed Problem Benign neoplasm of stomach (35394081) Polyp of stomach and duodenum (K31.7) Active confirmed Problem Irritable bowel syndrome with diarrhea (902330904) Irritable bowel syndrome with diarrhea (K58.0) Active confirmed Problem Nausea (982343588) Nausea (R11.0) Active confir med Problem Gastroesophageal reflux disease (984499092) Gastroesophageal reflux disease (K21.9) Active confirmed Problem 171307604 Gastroesophageal reflux disease with esophagitis (K21.0) Active confirmed Problem 703639466 Gastroesophageal reflux disease without esophagitis (K21.9) Active confirmed Problem 662376460 Gastroesophageal reflux disease, esophagitis presence not specified (K21.9) Active confirmed Problem 64950080 Hiatal hernia (K44.9) Active confirmed Problem Benign neoplasm of stomach (68763853) Gastric polyps (K31.7) Active confirmed Problem 001191123 Duodenal adenoma (D13.2) Active confirmed Problem 29723417 Erosive esophagitis (K22.10) Active confirmed Problem 25803274 Nausea and vomiting, unspecified intactability, vomiting of unspecified type (R11.2) Active confirmed Problem Gagging (200920221) Gagging epis ode (R19.8) Active confirmed Problem 12399896 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) Active confirmed Vital Signs Temperature 98.7 degrees Fahrenheit 06/05/2024 Blood pressure diastolic 00 mm Hg 06/05/2024 Height 72 in 06/05/2024 Blood pressure systolic 000 mm Hg 06/05/2024 Weight 213 lb 2 oz lbs 06/05/2024 BMI 28.90 kg/m2 06/05/2024 Encounters Encounter Location Date Provider Diagnosis [facility] Outpatient [address] [place], [place] [phone] 10/09/2024 Jung Goldstein Colon cancer screeni ng Z12.11 ; Colon polyps K63.5 ; Other hemorrhoids K64.8 ; Gastroesophageal reflux disease K21.9 ; Hiatal hernia K44.9 and Polyp of stomach and duodenum K31.7 [facility] [address] [place] [address] 06/05/2024 Jung Goldstein Gastroesophageal ref lux disease, esophagitis presence not specified K21.9 ; 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 10/09/2024 Other hemorrhoids (ICD-10 - K64.8) 06/05/2024 History of adenomatous polyp of colon [...] to keep you advised of his progress. 10/09/2024 Gastroesophageal reflux disease (ICD-10 - K21.9) 06/05/2024 Colon cancer screening (ICD-10 - Z12.11) [...] to keep you advised of his progress. 10/09/2024 Hiatal hernia (ICD-10 - K44.9) 10/09/2024 Polyp of stomach and duodenum (ICD-10 - K31.7) Plan Of Treatment Pending Test Test Name Order Date Esophageal Motility study 10/25/2016 24 HR pH PROBE 10/25/2016 Pathology 10/09/2024 Future Test Test Name Order Date UPPER GI ENDOSCOPY 03/15/2016 UPPER GI ENDOSCOPY 02/17/2019 UPPER GI ENDOSCOPY 03/17/2019 UPPER GI ENDOSCOPY 06/09/2019 COLONOSCOPY 06/09/2019 UPPER GI ENDOSCOPY 02/14/2022 UPPER GI ENDOSCOPY 06/05/2024 COLONOSCOPY 06/05/2024 Insurance Providers Payer Name Payer Address Payer Phone Subscriber Number Group Number Insured Name Patient Relationship to Insured Coverage Start Date Coverage End Date [facility] [employer] [address] [place] [address] [id number] COREY ARBOLEDA Self - patient is the insured Medical (General) History Medical History History ICD Code Denies NM,DM,CVA,Lung disease,renal dise ase Vertigo GERD--- upper endoscopy in carlos2015 revealed a moderate-sized hiatal hernia and erosive esophagitis--biopsies were negative for Law's esophagus. Normal 24 hour pH study and esophageal motility staudy in 2017. Seen by Dr. Ernst in 2017 for evaluation of HH and GERD, but Dr. Ernst opted to hold off on any surgery. [...] to be hyperplastic. Surgical History Surgery Date(Month/Year) [place] teeth extraction 2009
== END 2024-11-04 15:46 | disposition home or self-care (01) ==
PROVIDERS: PCP Nurse Practitioner Family; Visit Provider Nurse Practitioner Family
DX: Z00.00 Encounter for general adult medical examination without abnormal findings (principal); F41.9 Anxiety disorder, unspecified

== ENCOUNTER → 2024-11-04 14:49 | Outpatient (BNVA) | payer BC, SELFPAY | PROVIDERS: PCP Nurse Practitioner Family; Visit Provider Nurse Practitioner Family | DX: Z00.00 Encounter for general adult medical examination without abnormal findings (principal); F41.9 Anxiety disorder, unspecified | CPT/HCPCS: 96127 ==

== ENCOUNTER 2025-09-01 11:17 | Outpatient (REF) | payer BC, SELFPAY ==
--- OUTSIDE RECORDS SUMMARY | 2024-10-09 04:30 | XMS_ITS ---
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) Polyp of stomach and duodenum (K31.7) Active confirmed Encounters Encounter Location Date Provider Diagnosis [facility] [place] Out[place] [address] [place] [id number] 10/09/2024 Jung Duncan Colon cancer screeni ng Z12.11 ; Colon polyps K63.5 ; Other hemorrhoids K64.8 ; Gastroesophageal reflux disease K21.9 ; Hiatal hernia K44.9 and Polyp of stomach and duodenum K31.7 Assessments Encounter Date Diagnosis (ICD Code) Assessment Notes Treatment Notes Treatment Clinical Notes Section Notes 10/09/2024 Colon cancer screening (ICD-10 - Z12.11) 10/09/2024 Colon polyps (ICD-10 - K63.5) 10/09/2024 Other hemorrhoids (ICD-10 - K64.8) 10/09/2024 Gastroesophageal reflux disease (ICD-10 - K21.9) 10/09/2024 Hiatal hernia (ICD-10 - K44.9) 10/09/2024 Polyp of stomach and duodenum (ICD-10 - K31.7) Plan Of Treatment No Information Progress Notes * EVANS ARBOLEDA ZDOB:[birth year] (39 yo M)Acc No.[id number]:10/09/2024 EGD and COL/MAC Patient: EVANS ROSAS Provider: Lei Duncan MD :1985 A ge:39 Y S ex:Male Date:10/09/2024 Address:[address] [place], [place] [id number] Pcp:EVELINE TIPTON Subjective: * Chief Complaints: * S creening,hx polyps,duodenal adenoma,gerd Assessment: * Assessment: 1. C olon cancer screening - Z12.11 (Primary) 2 . C olon polyps - K63.5? 3. O ther hemorrhoids - K64.8 4 . G astroesophageal reflux disease - K21.9 5 . H iatal hernia - K44.9 6 . P olyp of stomach and duodenum - K31.7 Plan: * Procedure Codes: 4 5385 LESION REMOVAL COLONOSCOPY, [place]: [place] [address] UPPR GI ENDOSCOPY, DIAGNOSIS Billing Information: * Procedure Codes: 48401 LESION REMOVAL COL[place]OSCOPY[place]: [place] [address] UPPR GI ENDOSCOPY, DIAGNOSIS. * The named appointment provid er may or may not be the originator of this progress note, and it is not deemed complete until electronically signed by the appointment provider. Sign off status: Pending * Provider: Lei Duncan MD Date: 0 10/09/2024 Generated for Brina elizabeth/Bert/Nereydasmitting on: 12:54 PM EST
--- OUTSIDE RECORDS SUMMARY | 2025-09-01 12:54 | XMS_ITS | Patient Health Record ---
Author Organization [facility] Address [address] [place] [address] Care Team Providers Care Manager Search Name Role Phone DORENEMELISSAEVELINE Primary Care Provider Jung Hollingsworth [phone] Allergies No Known Allergies Results Component Value Reference Range Notes Pathology Reviewed date:08/12/2025 12:22:32 PM Interpretation: Performing Lab:[facility], [address] [place] [phone] Notes/Report: Reason For Referral No Information Medications Medication SIG (Take, Route, Frequency, Duration) Notes Start Date End Date Status NexIUM 40 MG Capsule Delayed Release 1 capsule Orally Once a day Not-Taking/PRN Meclizine HCl 25 MG Tablet Chewable 1 tablet as needed Orally prn Not-Taking/PRN Albuterol Sulfate ER 4 MG Tablet Extended Release 12 Hour 1 tablet Orally prn Not-T aking/PRN NexIUM 40 MG Capsule Delayed Release 1 capsule Orally Once a day; Duration: 30 day(s) 03/15/2016 Not-Taking/PRN Ativan 1 MG Tablet 1 tablet at bedtime as needed Orally Once a day Active Zofran ODT 4 MG Tablet Dispersible 1 tablet on the tongue and allow to dissolve Orally Q 4-6 hrs prn nausea/vomiting Rare 03/15/2016 Active Omeprazole 20 MG Capsule Delayed Release 2 Orally Once a day Active Immunizations Vaccine Route Administration Date Status Comme nts Influenza Unknown 07/09/2018 Administered Influenza Unknown 05/29/2019 Administered Influenza Unknown 07/18/2021 Administered Influenza Unknown 06/18/2023 Administered Social History Tobacco Use: Social History Observation Description Date Details (start date - stop date) Former Smoker NA - NA Social History Tobacco Use: Social Info Question Answer Notes Tobacco Use/Smoking Patient is a former smoker How long has it been since you last smoked? 1-5 years Additional Details Category Social Info Options Details Miscellaneous: Marital status: Occupation: IT computer supp ort Section Notes: Nonsmoker early 2015; no sig alcohol Nonsmoker early 2015; no sig alcohol Nonsmoker early 2015; no sig alcohol Nonsmoker early 2015; no sig alcohol Nonsmoker early 2015; no sig alcohol Nonsmoker early 2015; no sig alcohol Nonsmoker early 2015; no sig alcohol Problems Problem Type SNOMED Code ICD Code Onset Dates Problem Status W/U Status Risk Notes Problem Colon cancer screening (163804146) Colon cancer screening (Z12.11) Active confirmed Problem Esophageal reflux (123403270) Esophageal reflux (K21.9) Active confirmed Problem History of adenomatous polyp of colon (669658251) History of adenomatous polyp of colon (Z86.010) Active confirmed Problem Benign neoplasm of stomach (79214212) Polyp of stomach and duodenum (K31.7) Active confirmed Problem Irritable bowel syndrome with diarrhea (001020204) Irritable bowel syndrome with diarrhea (K58.0) Active confirmed Problem Nausea (299717468) Nausea (R11.0) Active confir med Problem Gastroesophageal reflux disease (434820595) Gastroesophageal reflux disease (K21.9) Active confirmed Problem Gastroesophageal reflux disease with esophagitis (040421869) Gastroesophageal reflux disease with esophagitis (K21.0) Active confirmed Problem Gastroesophageal reflux disease without esophagitis (507391244) Gastroesophageal reflux disease without esophagitis (K21.9) Active confirmed Problem Gastroesophageal reflux disease (580203100) Gastroesophageal reflux disease, esophagitis presence not specified (K21.9) Active confirmed Problem Hiatal hernia (28391358) Hiatal hernia (K44.9) Active confirmed Problem Benign neoplasm of stomach (09269430) Gastric polyps (K31.7) Active confirmed Problem 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 Problem Erosive esophagitis (56461877) Erosive esophagitis (K22.10) Active confirmed Problem Nausea and vomiting (97407062) Nausea and vomiting, unspecified intactability, vomiting of unspecified type (R11.2) Active confirmed Problem Gagging (433275841) Gagging epis ode (R19.8) Active confirmed Problem Benign neoplasm of small intestine (51015157) 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) Active confirmed Encounters Encounter Location Date Provider Diagnosis [facility] [place] [facility] Outpatient [address], [place] [id number] 10/09/2024 Jung Duncan Colon cancer screeni ng [...] Insured Coverage Start Date Coverage End Date [facility] [employer] [facility] PROF[employer]AL CLAIMS [address] [place] [address] [id number] EVANS ARBOLEDA Self - patient is the insured Medical (General) History Medical History History ICD Code Denies DC,DM,CVA,Lung disease,renal dise ase Vertigo GERD--- upper endoscopy in [facility] of 2015 revealed a moderate-sized hiatal hernia [...] to be hyperplastic. Surgical History Surgery Date(Month/Year) [place] teeth extraction 2009
--- OUTSIDE RECORDS SUMMARY | 2025-09-01 12:54 | XMS_ITS | Clinical Summary ---
Author Organization [facility] Address [address] [place] [address] Care Team Providers Care Senior Advocate Name Role Phone Kalyan Alberts YARN MAN Unavailable [phone] Kalyan Alberts NP Primary Care Provider + Jung English MD Unavailable [phone] Allergies No known active allergies Medications omeprazole (PriLOSEC) [address] Capsule Take 1 capsule (40 mg total) by mouth daily. 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 Family History Medical History Relation Comments Infertility Neg Hx Social History Tobacco Use Types Packs/Day Years Used Date Smoking Tobacco: Former Cigarettes Smokeless Tobacco: Former Sex and Gender Information Value Date Recorded Sex Assigned at Not on file Legal Sex Male 10:34 AM EDT Gender Identity Not on file Sexual Orientation Not on file Plan of Treatment Health Maintenance Due Date Last Done Comments Blood Pressure 1986 Depression Screening 1998 Hepatitis C Screening 2004 DTaP,Tdap,and Td Vaccines (1 - Tdap) 2005 COVID-19 Vaccine ( season) 2025 07/06/2021, 12/03/2020, 11/05/2020 Influenza Vaccine (#1) 2025 , 07/20/2021, 07/18/2020, Additional history exists Meningococcal B Vaccines Aged Out No longer eligible based on patient's age to complete this topic Meningococcal Vaccines Aged Out No lo nger eligible based on patient's age to complete this topic Pneumococcal Vaccine Aged Out No long er eligible based on patient's age to complete this topic Insurance [facility] Care Teams Senior Advocate Relationship Specialty Start Date End Date Kalyan Alberts NP [address] [place] [address] PCP - Insurance Assigned PCP 04/08/24 Kalyan Alberts NP [address] [place] [id number] PCP - General Nurse Practitioner 04/08/24 Jung English MD [address] [place] [id number] Consulting Provider Urology 04/14/24
--- OUTSIDE RECORDS SUMMARY | 2025-09-01 12:54 | XMS_ITS | Clinical Summary ---
Author Organization [facility] Address [address] [place] [address] Care Team Providers Care Patternmaker Apprentice Metal Name Role Phone Unavailable Primary Care Provider Unavailabl e Social History Tobacco Use Types Packs/Day Years Used Date Smoking Tobacco: Never Assessed Sex and Gender Information Value Date Recorded Sex Assigned at Not on file Legal Sex Male 6:13 PM EST Gender Identity Not on file Sexual Orientation Not on file Plan of Treatment Health Maintenance Due Date Last Done Comments Hepatitis C Virus Screening 1986 HIV Screening 1999 DTaP/Tdap/Td Vaccines (1 - Tdap) 2005 Hepatitis B Vaccines (1 of 3 - 19+ 3-dose series) 2005 COVID-19 Vaccine (2024-2 6 season) 2025 HPV Vaccines (No Doses Required) Completed Pneumococcal Vaccine: Pediat jazmine (0-5 Years) and At-Risk Patients (6 to 49 Years) Aged Out No longer eligible b ased on patient's age to complete this topic
[2025-09-01 16:18] LABS: MANUAL DIFF FLAG NO
[2025-09-01 16:45] LABS: Hematocrit 44.3 % (42.0-52.0); Hemoglobin 14.6 g/dl (14.0-18.0); Imm Gran Abs Auto 0.06 X10*3/uL (0.00-0.03); Imm Gran Pct Auto 0.7 % (0.0-0.4); Lymphocytes Absolute Auto 2.6 X10*3/uL (1.2-4.9); Mean Corpuscular HGB Conc 33.0 g/dl (31.0-36.0); Mean Corpuscular Hemoglobin 29.0 pg (27.0-33.0); Mean Corpuscular Volume 88.1 fL (80.0-98.0); NRBC Abs Auto 0.000 X10*3/uL (0.0-0.012); NRBC Pct Auto 0.0 /100WBC (0.0-0.2); Platelet Count 303 X10*3/uL (160-400); Red Blood Count 5.03 X10*6/uL (4.60-5.80); White Blood Count 8.4 X10*3/uL (4.8-10.8)
[2025-09-01 17:16] LABS: Appearance Urine Clear; Glucose Urine UA Negative (Negative); PH 7.5 (5.0-9.0); Specific Gravity - Urine 1.015 (1.005-1.025)
[2025-09-01 17:33] LABS: Alanine Aminotransferase 50 U/L (0-40); Albumin Level 4.7 g/dL (3.5-5.0); Alkaline Phosphatase 59 U/L (39-117); Anion Gap 15 (12-20); Aspartate Amino Transferase 44 U/L (5-37); Blood Urea Nitrogen 12 mg/dL (9-16); Calcium 9.8 mg/dL (8.4-10.2); Carbon Dioxide 25 mmol/L (22-29); Chloride 103 mmol/L (96-108); Cholesterol 232 mg/dL (<200); Estimated Glomerular Filt Rate > 60; HDL Cholesterol 66 mg/dL (>40); Potassium 4.1 mmol/L (3.3-5.1); Sodium 139 mmol/L (135-145); Total Protein 7.7 g/dL (6.5-8.0); Triglycerides 113 mg/dL (<150)
== END 2025-09-01 11:18 | disposition home or self-care (01) ==
LOC: HO.WFDLDS 11:17
PROVIDERS: Visit Provider Nurse Practitioner Family
DX: Z00.00 Encounter for general adult medical examination without abnormal findings (principal); Z13.6 Encounter for screening for cardiovascular disorders; Z13.29 Encounter for screening for other suspected endocrine disorder; Z13.0 Encounter for screening for diseases of the blood and blood-forming organs and certain disorders involving the immune mechanism
CPT/HCPCS: 36415; 80053; 80061; 81003; 84443; 85025